=== PATIENT | female | born 1950 | race Two or more races ===

== ENCOUNTER 2021-10-12 09:20 | Inpatient (IN) | payer OTHER, MEDICAID ==
[~2021-10-12] VITALS: Ht 172.7 cm; Wt 110.5 kg
[2021-10-12] MEDS ORDERED: ONDANSETRON HCL 4 MG/2 ML VIAL ONE (10:20)
[2021-10-12] MEDS ORDERED: ONDANSETRON HCL 4 MG/2 ML VIAL IV ONE ×2 (10:30→16:45)
[2021-10-12] MEDS ORDERED: MORPHINE SULFATE 4 MG/ML SYR/VIAL IV ONE (10:30)
[2021-10-12 11:22] LABS: Basophils # (auto) 0.1 10 ^3/uL (0-0.2); Basophils % (auto) 0.4 % (0.0-2.0); Eosinophils # (auto) 0.1 10 ^3/uL (0-0.8); Eosinophils % (auto) 0.6 % (0.0-7.0); Hematocrit 44.7 % (36.0-46.0); Hemoglobin 14.6 g/dL (12.2-16.2); Lymphocytes # (auto) 2.1 10 ^3/uL (0.4-5.4); Lymphocytes % (auto) 12.5 % (10.0-50.0); Mean Corpuscular Hemoglobin 27.1 pg (28.0-32.0); Mean Corpuscular Hgb Conc. 32.6 g/dL (32.0-36.0); Monocytes % (auto) 6.3 % (0.0-12.0); Neutrophils # (auto) 13.3 10 ^3/uL (1.6-8.6); Neutrophils % (auto) 80.2 % (37.0-80.0); Red Blood Cells 5.39 10^6/uL (4.0-5.20); White Blood Cell 16.5 10^3/uL (4.4-10.8)
[2021-10-12 11:39] LABS: Albumin 3.7 g/dL (3.4-5.0); Calcium 9.2 mg/dL (8.5-10.1); Potassium 3.4 mmol/L (3.5-5.1)
[2021-10-12 11:42] LABS: BUN/Creatinine Ratio 15.8; Bilirubin, Total 0.4 mg/dL (0.2-1.0); Total Protein 7.4 g/dL (6.4-8.2)
[2021-10-12] MEDS ORDERED: HYDROmorphone HCL 2 MG/ML VL IV ONE (16:45)
[2021-10-12] MEDS ORDERED: ONDANSETRON HCL 4 MG/2 ML VIAL IV PRN (21:00)
[2021-10-12] MEDS ORDERED: TEMAZEPAM 15 MG CAP PO PRN (21:00)
[2021-10-12] MEDS ORDERED: HYDROcodone-ACET 5/325MG TAB PO PRN (21:00)
[2021-10-12] MEDS ORDERED: ACETAMINOPHEN 325 MG TAB PO PRN (21:00)
[2021-10-12] MEDS: MORPHINE SULFATE 4 MG/ML SYR/VIAL IV PRN (21:21)
[2021-10-12 22:35] LABS: Urine Bacteria NONE SEEN /hpf (None Seen); Urine Blood Negative /uL (Negative); Urine Mucus FEW (None Seen); Urine Specific Gravity 1.015 (1.001-1.035); Urine WBC <1 /hpf (0 - 5)
[2021-10-12 22:55] LABS: INR 0.99 (0.9-1.15); Partial Thromboplastin Time 30.5 sec (23.6-33.0)
[2021-10-13 05:31] LABS: Basophils # (auto) 0.1 10 ^3/uL (0-0.2); Eosinophils # (auto) 0 10 ^3/uL (0-0.8); Eosinophils % (auto) 0.2 % (0.0-7.0); Hematocrit 42.5 % (36.0-46.0); Lymphocytes # (auto) 1.8 10 ^3/uL (0.4-5.4); Monocytes # (auto) 1.2 10 ^3/uL (0-1.3); Neutrophils # (auto) 13.8 10 ^3/uL (1.6-8.6); White Blood Cell 16.8 10^3/uL (4.4-10.8)
[2021-10-13 05:37] LABS: Basophils % (auto) 0.4 % (0.0-2.0); Hemoglobin 13.8 g/dL (12.2-16.2); Lymphocytes % (auto) 10.9 % (10.0-50.0); Mean Corpuscular Hgb Conc. 32.5 g/dL (32.0-36.0); Monocytes % (auto) 6.8 % (0.0-12.0); Neutrophils % (auto) 81.7 % (37.0-80.0); Red Blood Cells 5.12 10^6/uL (4.0-5.20); Red Cell Distribution Width 15.2 % (11.8-14.3)
[2021-10-13 05:43] LABS: Calcium 9.1 mg/dL (8.5-10.1)
[2021-10-13 05:45] LABS: BUN/Creatinine Ratio 24.1
[2021-10-13] MEDS: MORPHINE SULFATE 4 MG/ML SYR/VIAL IV PRN (07:54)
[2021-10-13 08:00] VITALS: BP 120/55
[2021-10-13 09:00] VITALS: BP 120/55
[2021-10-13] MEDS ORDERED: PANTOPRAZOLE 40 MG TAB PO SCH (10:00)
[2021-10-13] MEDS ORDERED: MORPHINE SULFATE INJECTION 2 MG/ML SYRG IV STA (10:53)
[2021-10-13] MEDS ORDERED: SODIUM CHLORIDE 0.9% 1,000 ML IV SCH (11:15)
[2021-10-13 12:22] VITALS: BP 154/65
[2021-10-13] MEDS ORDERED: fentaNYL CITRATE 100 MCG/2 ML VL ONE (12:24)
[2021-10-13] MEDS ORDERED: MEPERIDINE HCL (50 MG/ML) 1 ML VIAL ONE (12:25)
[2021-10-13] MEDS ORDERED: MIDAZOLAM HCL 2MG/2ML 2ml VIAL (1mg/ml) ONE (12:30)
[2021-10-13] MEDS ORDERED: CLINDAMYCIN 900MG IV 50 ML IV ONE (12:38)
[2021-10-13] MEDS ORDERED: ONDANSETRON HCL 4 MG/2 ML VIAL IV PRN (12:45)
[2021-10-13] MEDS ORDERED: MORPHINE SULFATE 4 MG/ML SYR/VIAL IV PRN (12:45)
[2021-10-13] MEDS ORDERED: ePHEDrine SULFATE 50 MG/ML AMP IV PRN (12:45)
[2021-10-13] MEDS ORDERED: LABETALOL HCL 5 MG/ML 4ML SYRINGE IV PRN (12:45)
[2021-10-13] MEDS ORDERED: MIDAZOLAM HCL 2MG/2ML 2ml VIAL (1mg/ml) IV PRN (12:45)
[2021-10-13] MEDS ORDERED: HYDROmorphone HCL 2 MG/ML VL IV PRN (12:45)
[2021-10-13] MEDS ORDERED: DexAMETHasone SOD PHOS 10MG/1ML VIAL INJ ONE (13:05)
[2021-10-13] MEDS ORDERED: ETOMIDATE (2MG/ML) 20ML VIAL IV ONE (13:05)
[2021-10-13] MEDS ORDERED: BUPIVACAINE W/ EPINEPH 0.5% INJ 50ML MDV IJ ONE (13:27)
[2021-10-13] MEDS ORDERED: HYDROmorphone HCL 2 MG/ML VL ONE (14:41)
[2021-10-13] MEDS: LACTATED RINGER'S 1,000 ML IV SCH ×2 (15:12→23:08)
[2021-10-13 16:58] VITALS: BP 139/67
[2021-10-13 20:00] VITALS: BP 166/76
[2021-10-13] MEDS: HYDROcodone-ACET 10/325MG TAB PO PRN (23:07)
[2021-10-13] MEDS: CLINDAMYCIN 600MG IV 50 ML IV SCH (23:08)
[2021-10-13] MEDS: SODIUM CHLOR 0.9% PF (SALINE LOCK) 10ML VIAL/SYR IV SCH (23:09)
[2021-10-14] MEDS: CLINDAMYCIN 600MG IV 50 ML IV SCH (04:00)
[2021-10-14 05:00] VITALS: BP 117/75
[2021-10-14 07:29] LABS: Basophils # (auto) 0.1 10 ^3/uL (0-0.2); Basophils % (auto) 0.3 % (0.0-2.0); Eosinophils # (auto) 0 10 ^3/uL (0-0.8); Lymphocytes # (auto) 1.7 10 ^3/uL (0.4-5.4); Lymphocytes % (auto) 8.9 % (10.0-50.0); Red Cell Distribution Width 14.8 % (11.8-14.3)
[2021-10-14 07:32] LABS: Hematocrit 38.6 % (36.0-46.0); Hemoglobin 12.7 g/dL (12.2-16.2); Mean Corpuscular Hemoglobin 27.1 pg (28.0-32.0); Mean Corpuscular Hgb Conc. 32.8 g/dL (32.0-36.0); Mean Corpuscular Volume 82.5 fL (80.0-100.0); Monocytes # (auto) 1.6 10 ^3/uL (0-1.3); Monocytes % (auto) 8.6 % (0.0-12.0); Neutrophils # (auto) 15.5 10 ^3/uL (1.6-8.6); Neutrophils % (auto) 82.2 % (37.0-80.0); Red Blood Cells 4.68 10^6/uL (4.0-5.20); White Blood Cell 18.8 10^3/uL (4.4-10.8)
[2021-10-14 07:54] LABS: Potassium 4.5 mmol/L (3.5-5.1)
[2021-10-14 08:03] LABS: BUN/Creatinine Ratio 58.3
[2021-10-14] MEDS: SODIUM CHLOR 0.9% PF (SALINE LOCK) 10ML VIAL/SYR IV SCH ×3 (08:03→21:31)
[2021-10-14] MEDS: ENOXAPARIN SOD 40 MG/0.4 ML SYRINGE SC SCH (09:26)
[2021-10-14] MEDS: LACTATED RINGER'S 1,000 ML IV SCH ×2 (09:26→10:45)
[2021-10-14] MEDS: HYDROcodone-ACET 10/325MG TAB PO PRN ×4 (09:27→23:02)
[2021-10-14 09:36] VITALS: BP 153/72
[2021-10-14 12:51] VITALS: BP 142/64
[2021-10-14] MEDS ORDERED: BACLOFEN 10 MG TAB PO PRN (13:30)
[2021-10-14 22:00] VITALS: BP 157/75
[2021-10-15] MEDS: LACTATED RINGER'S 1,000 ML IV SCH ×2 (00:21→09:45)
[2021-10-15 05:00] VITALS: BP 154/72
[2021-10-15] MEDS: HYDROcodone-ACET 10/325MG TAB PO PRN ×3 (05:01→17:16)
[2021-10-15] MEDS: SODIUM CHLOR 0.9% PF (SALINE LOCK) 10ML VIAL/SYR IV SCH ×2 (06:14→17:00)
[2021-10-15 09:12] VITALS: BP 156/73
[2021-10-15] MEDS: ENOXAPARIN SOD 40 MG/0.4 ML SYRINGE SC SCH (09:44)
[2021-10-15] MEDS ORDERED: hydrALAZINE HCL 20 MG/ML VL IV PRN (10:45)
[2021-10-15 12:49] VITALS: BP 135/65
[2021-10-15 17:09] VITALS: BP 169/80
[2021-10-15 22:00] VITALS: BP 159/78
[2021-10-16] MEDS: SODIUM CHLOR 0.9% PF (SALINE LOCK) 10ML VIAL/SYR IV SCH ×4 (00:28→23:02)
[2021-10-16 05:31] LABS: Basophils # (auto) 0.1 10 ^3/uL (0-0.2); Basophils % (auto) 0.8 % (0.0-2.0); Eosinophils # (auto) 0.4 10 ^3/uL (0-0.8); Eosinophils % (auto) 2.3 % (0.0-7.0); Hematocrit 36.2 % (36.0-46.0); Hemoglobin 11.9 g/dL (12.2-16.2); Lymphocytes # (auto) 3.8 10 ^3/uL (0.4-5.4); Lymphocytes % (auto) 24.5 % (10.0-50.0); Mean Corpuscular Hemoglobin 27.3 pg (28.0-32.0); Mean Corpuscular Volume 82.6 fL (80.0-100.0); Monocytes # (auto) 1.3 10 ^3/uL (0-1.3); Monocytes % (auto) 8.3 % (0.0-12.0); Neutrophils # (auto) 10.1 10 ^3/uL (1.6-8.6); Neutrophils % (auto) 64.1 % (37.0-80.0); Red Blood Cells 4.38 10^6/uL (4.0-5.20); Red Cell Distribution Width 14.5 % (11.8-14.3); White Blood Cell 15.7 10^3/uL (4.4-10.8)
[2021-10-16 08:28] VITALS: BP 175/76
[2021-10-16] MEDS: ENOXAPARIN SOD 40 MG/0.4 ML SYRINGE SC SCH ×2 (09:50→09:59)
[2021-10-16 12:42] VITALS: BP 151/94
[2021-10-16 22:00] VITALS: BP 142/71
[2021-10-17 05:00] VITALS: BP 162/72
[2021-10-17] MEDS: SODIUM CHLOR 0.9% PF (SALINE LOCK) 10ML VIAL/SYR IV SCH ×2 (06:15→14:06)
[2021-10-17 09:00] VITALS: BP 162/82
[2021-10-17] MEDS: ENOXAPARIN SOD 40 MG/0.4 ML SYRINGE SC SCH (10:49)
[2021-10-17 13:00] VITALS: BP 143/71
[2021-10-17 17:00] VITALS: BP 163/76
[2021-10-17 20:00] VITALS: BP 117/71
[2021-10-18] MEDS: SODIUM CHLOR 0.9% PF (SALINE LOCK) 10ML VIAL/SYR IV SCH ×3 (03:26→14:20)
[2021-10-18 05:00] VITALS: BP 109/70
[2021-10-18 06:18] LABS: Basophils # (auto) 0.1 10 ^3/uL (0-0.2); Basophils % (auto) 0.8 % (0.0-2.0); Eosinophils # (auto) 0.5 10 ^3/uL (0-0.8); Eosinophils % (auto) 3.9 % (0.0-7.0); Hematocrit 35.6 % (36.0-46.0); Hemoglobin 11.6 g/dL (12.2-16.2); Lymphocytes # (auto) 3.1 10 ^3/uL (0.4-5.4); Lymphocytes % (auto) 22.5 % (10.0-50.0); Mean Corpuscular Hemoglobin 26.9 pg (28.0-32.0); Mean Corpuscular Hgb Conc. 32.6 g/dL (32.0-36.0); Mean Corpuscular Volume 82.7 fL (80.0-100.0); Monocytes # (auto) 1.2 10 ^3/uL (0-1.3); Monocytes % (auto) 8.8 % (0.0-12.0); Neutrophils # (auto) 8.7 10 ^3/uL (1.6-8.6); Red Cell Distribution Width 14.6 % (11.8-14.3); White Blood Cell 13.6 10^3/uL (4.4-10.8)
[2021-10-18 06:26] LABS: Potassium 3.8 mmol/L (3.5-5.1)
[2021-10-18 06:46] LABS: Albumin 2.9 g/dL (3.4-5.0); BUN/Creatinine Ratio 35.7; Bilirubin, Total 0.7 mg/dL (0.2-1.0); Calcium 8.7 mg/dL (8.5-10.1); Total Protein 6.3 g/dL (6.4-8.2)
[2021-10-18 08:00] VITALS: BP 130/69
[2021-10-18] MEDS: ENOXAPARIN SOD 40 MG/0.4 ML SYRINGE SC SCH (10:32)
[2021-10-18 12:32] VITALS: BP 151/83
[2021-10-18 13:46] VITALS: BP 130/60
== END 2021-10-18 15:00 | DRG 481 ==
LOC: ER 09:20 → EDBD 09:20 → OVERFLOW 20:54 → WEST WING 23:49
PROVIDERS: ADMIT Nurse Practitioner; ATTEND Internal Medicine
PROC: BQ101ZZ Fluoroscopy of Right Hip using Low Osmolar Contrast (ICD-10-PCS; 2021-10-13)
PROC: 0QS636Z Reposition Right Upper Femur with Intramedullary Internal Fixation Device, Percutaneous Approach (ICD-10-PCS; principal; 2021-10-13 12:43)
DX: S72.141A Displaced intertrochanteric fracture of right femur, initial encounter for closed fracture (principal); R65.10 Systemic inflammatory response syndrome (SIRS) of non-infectious origin without acute organ dysfunction; K44.9 Diaphragmatic hernia without obstruction or gangrene; I10 Essential (primary) hypertension; E66.9 Obesity, unspecified; K57.30 Diverticulosis of large intestine without perforation or abscess without bleeding; W06.XXXA Fall from bed, initial encounter; E66.01 Morbid (severe) obesity due to excess calories; Z20.822 Contact with and (suspected) exposure to COVID-19; M19.90 Unspecified osteoarthritis, unspecified site; K76.0 Fatty (change of) liver, not elsewhere classified; Z88.0 Allergy status to penicillin; Z68.36 Body mass index [BMI] 36.0-36.9, adult; Y93.89 Activity, other specified; Y92.89 Other specified places as the place of occurrence of the external cause; Y99.8 Other external cause status
CPT/HCPCS: 36415; 70450; 71045; 72192; 73502; 74176; 76000; 80048; 80053; 81001; 85025; 85610; 85730; 86850; 86900; 86901; 87426; 93005; 96374; 96375; 96376; 97110; 97116; 97163; 97530; 99291; C1713; G0378; J1100; J2250; J2405; J3490

== ENCOUNTER 2023-04-14 15:20 | Inpatient (IN) | payer OTHER, MEDICAID ==
[~2023-04-14] VITALS: Ht 172.7 cm; Wt 126.8 kg
[2023-04-14 16:27] VITALS: PULSE 79; RESP 14; O2SAT 98
[2023-04-14 16:41] LABS: Basophils # (auto) 0.1 10 ^3/uL (0-0.2); Eosinophils # (auto) 0.4 10 ^3/uL (0-0.8); Eosinophils % (auto) 2.9 % (0.0-7.0); Hematocrit 48.3 % (36.0-46.0); Hemoglobin 15.8 g/dL (12.2-16.2); Lymphocytes # (auto) 3.8 10 ^3/uL (0.4-5.4); Lymphocytes % (auto) 26.9 % (10.0-50.0); Mean Corpuscular Hemoglobin 27.8 pg (28.0-32.0); Mean Corpuscular Hgb Conc. 32.8 g/dL (32.0-36.0); Mean Corpuscular Volume 84.7 fL (80.0-100.0); Monocytes # (auto) 1.1 10 ^3/uL (0-1.3); Monocytes % (auto) 7.6 % (0.0-12.0); Neutrophils # (auto) 8.8 10 ^3/uL (1.6-8.6); Neutrophils % (auto) 61.6 % (37.0-80.0); Nucleated Red Blood Cells % 0.1 %; Red Cell Distribution Width 15.1 % (11.8-14.3); White Blood Cell 14.2 10^3/uL (4.4-10.8)
[2023-04-14] MEDS ORDERED: IPRATROPIUM BROM 0.5 MG/2.5ML INH SOL NEB ONE (16:45)
[2023-04-14] MEDS ORDERED: ALBUTEROL SULF 2.5 MG/0.5ML(0.5%) NEB SOLN NEB ONE (16:45)
[2023-04-14] MEDS ORDERED: predniSONE 20 MG TAB PO ONE (16:45)
[2023-04-14 17:09] LABS: Albumin 4.2 g/dL (3.4-5.0); Calcium 9.5 mg/dL (8.5-10.1)
[2023-04-14 17:12] LABS: BUN/Creatinine Ratio 20.9 (10.0-20.0); Bilirubin, Total 0.5 mg/dL (0.2-1.0); Total Protein 7.8 g/dL (6.4-8.2)
[2023-04-14] MEDS ORDERED: NITROGLYCERIN 0.4 MG SL TAB SL PRN (18:30)
[2023-04-14] MEDS ORDERED: IPRATROPIUM BROM 0.5 MG/2.5ML INH SOL NEB PRN (18:30)
[2023-04-14] MEDS ORDERED: ONDANSETRON HCL 4 MG/2 ML VIAL IV PRN (18:30)
[2023-04-14] MEDS ORDERED: ALBUTEROL SULF 2.5 MG/0.5ML(0.5%) NEB SOLN NEB PRN (18:30)
[2023-04-14] MEDS ORDERED: MORPHINE SULFATE INJ 2 MG/ml SYRG IV PRN (18:30)
[2023-04-14] MEDS ORDERED: ACETAMINOPHEN 325 MG TAB PO PRN (18:30)
[2023-04-14 18:39] VITALS: BP 156/82; PULSE 82; RESP 18; TEMP 98.6; O2SAT 95
[2023-04-14] MEDS ORDERED: hydrALAZINE HCL 20 MG/ML VL IV ONE (18:45)
[2023-04-14 21:23] VITALS: PULSE 93; RESP 19; O2SAT 94
[2023-04-15] VITALS (15 sets, daily range): BP systolic 127–197; BP diastolic 81–104; PULSE 63–98; RESP 14–20; TEMP 97.4–98.4; O2SAT 91–99
[2023-04-15 05:22] LABS: Basophils # (auto) 0.1 10 ^3/uL (0-0.2); Basophils % (auto) 0.3 % (0.0-2.0); Eosinophils # (auto) 0 10 ^3/uL (0-0.8); Eosinophils % (auto) 0.2 % (0.0-7.0); Hematocrit 44.3 % (36.0-46.0); Hemoglobin 14.7 g/dL (12.2-16.2); Lymphocytes # (auto) 2.2 10 ^3/uL (0.4-5.4); Lymphocytes % (auto) 14.2 % (10.0-50.0); Mean Corpuscular Hgb Conc. 33.2 g/dL (32.0-36.0); Mean Corpuscular Volume 84.4 fL (80.0-100.0); Monocytes # (auto) 1.2 10 ^3/uL (0-1.3); Monocytes % (auto) 7.7 % (0.0-12.0); Neutrophils # (auto) 12.2 10 ^3/uL (1.6-8.6); Neutrophils % (auto) 77.6 % (37.0-80.0); Red Blood Cells 5.24 10^6/uL (4.0-5.20); Red Cell Distribution Width 14.8 % (11.8-14.3); White Blood Cell 15.7 10^3/uL (4.4-10.8)
[2023-04-15 05:37] LABS: Calcium 9.3 mg/dL (8.5-10.1); Potassium 3.5 mmol/L (3.5-5.1)
[2023-04-15 05:41] LABS: BUN/Creatinine Ratio 23.9 (10.0-20.0)
[2023-04-15] MEDS ORDERED: hydrALAZINE HCL 20 MG/ML VL IV SCH (06:00)
[2023-04-15] MEDS ORDERED: hydrALAZINE HCL 20 MG/ML VL IV PRN (06:15)
[2023-04-15] MEDS: ALBUTEROL SULF 2.5 MG/0.5ML(0.5%) NEB SOLN NEB SCH ×3 (06:22→19:03)
[2023-04-15] MEDS: IPRATROPIUM BROM 0.5 MG/2.5ML INH SOL NEB SCH ×3 (06:22→19:03)
[2023-04-15 08:00] LABS: Urine Bacteria NONE SEEN /hpf (None Seen); Urine Blood Negative /uL (Negative); Urine Mucus FEW (None Seen); Urine Specific Gravity 1.027 (1.001-1.035); Urine WBC 29 /hpf (0 - 5)
[2023-04-15] MEDS ORDERED: AZITHROMYCIN 500MG/ 250ML 250 ML IV SCH (10:00)
[2023-04-15] MEDS: methylPREDNISolone SOD SUCC 40 MG/ML VL IV SCH (10:00)
[2023-04-15] MEDS: ENOXAPARIN SOD 40 MG/0.4 ML SYRINGE SC SCH (11:04)
[2023-04-15] MEDS: LISINOPRIL 10 MG TAB PO SCH (11:04)
[2023-04-15] MEDS ORDERED: levoFLOXacin 500MG 100 ML IV ONE (12:45)
[2023-04-15] MEDS ORDERED: METOPROLOL TARTRATE 50 MG TAB PO ONE (12:45)
[2023-04-15] MEDS ORDERED: CHOL20007 PO (16:46)
[2023-04-15] MEDS ORDERED: VITA1POW XX (16:49)
[2023-04-15] MEDS ORDERED: VITA200C27 PO (16:51)
[2023-04-15] MEDS ORDERED: FOLITAB22 PO (16:52)
[2023-04-15] MEDS ORDERED: B-COTAB59 OR (16:54)
[2023-04-15] MEDS ORDERED: ASCO500T11 PO (16:55)
[2023-04-15] MEDS ORDERED: CALC1TAB92 PO (16:56)
[2023-04-15] MEDS ORDERED: GLUC750C4 PO (16:57)
[2023-04-15] MEDS ORDERED: ZINC10LO4 MT (17:00)
[2023-04-15] MEDS ORDERED: MAGN400T40 PO (17:06)
[2023-04-15] MEDS: METOPROLOL TARTRATE 50 MG TAB PO SCH (21:44)
[2023-04-16] VITALS (16 sets, daily range): BP systolic 121–153; BP diastolic 67–79; PULSE 52–91; RESP 14–20; TEMP 97.6–98.6; O2SAT 90–100
[2023-04-16] MEDS: IPRATROPIUM BROM 0.5 MG/2.5ML INH SOL NEB SCH ×4 (00:16→18:48)
[2023-04-16] MEDS: ALBUTEROL SULF 2.5 MG/0.5ML(0.5%) NEB SOLN NEB SCH ×4 (00:16→18:48)
[2023-04-16] MEDS: methylPREDNISolone SOD SUCC 40 MG/ML VL IV SCH (08:34)
[2023-04-16] MEDS: ENOXAPARIN SOD 40 MG/0.4 ML SYRINGE SC SCH (08:35)
[2023-04-16] MEDS: levoFLOXacin 500MG 100 ML IV SCH (08:36)
[2023-04-16] MEDS: METOPROLOL TARTRATE 50 MG TAB PO SCH ×2 (08:36→21:28)
[2023-04-16] MEDS: LISINOPRIL 10 MG TAB PO SCH (08:36)
[2023-04-17] VITALS (10 sets, daily range): BP systolic 137–157; BP diastolic 53–78; PULSE 64–78; RESP 16–20; TEMP 98.4–98.5; O2SAT 91–100
[2023-04-17] MEDS: IPRATROPIUM BROM 0.5 MG/2.5ML INH SOL NEB SCH ×3 (01:38→12:33)
[2023-04-17] MEDS: ALBUTEROL SULF 2.5 MG/0.5ML(0.5%) NEB SOLN NEB SCH ×3 (01:38→12:33)
[2023-04-17] MEDS: methylPREDNISolone SOD SUCC 40 MG/ML VL IV SCH (09:00)
[2023-04-17] MEDS ORDERED: LEVO500T91 PO (09:21)
[2023-04-17] MEDS: METOPROLOL TARTRATE 50 MG TAB PO SCH (09:24)
[2023-04-17] MEDS: levoFLOXacin 500MG 100 ML IV SCH (09:24)
[2023-04-17] MEDS: LISINOPRIL 10 MG TAB PO SCH (09:25)
[2023-04-17] MEDS: ENOXAPARIN SOD 40 MG/0.4 ML SYRINGE SC SCH (09:25)
[2023-04-17] MEDS ORDERED: METO-158 PO (09:26)
== END 2023-04-17 12:32 | disposition home or self-care (01) | DRG 871 ==
LOC: ER 15:20 → TELE 18:28 → TELE-CENTR 04-15 11:48
PROVIDERS: ADMIT Family Medicine; ATTEND Family Medicine
DX: A41.9 Sepsis, unspecified organism (principal); J96.21 Acute and chronic respiratory failure with hypoxia; J44.1 Chronic obstructive pulmonary disease with (acute) exacerbation; N39.0 Urinary tract infection, site not specified; M19.90 Unspecified osteoarthritis, unspecified site; I10 Essential (primary) hypertension; Z88.0 Allergy status to penicillin; Z87.891 Personal history of nicotine dependence
CPT/HCPCS: 36415; 71045; 80048; 80053; 81001; 83880; 84484; 85025; 87086; 93005; 94640; G0378; J1956

== ENCOUNTER 2025-04-14 23:41 | Inpatient (IN) | payer OTHER, MEDICAID ==
[~2025-04-14] VITALS: Ht 172.7 cm; Wt 116.4 kg
[~2025-04-14 23:41] MED LIST: ASCO500T11 PO; ATOR10TA52 PO; B-COTAB59 OR; CALC1TAB92 PO; CHOL20007 PO; FOLITAB22 PO; GLUC750C4 PO; LEVO500T91 PO; MAGN400T40 PO; METO-158 PO; VITA1POW XX; VITA200C27 PO; ZINC10LO4 MT
[2025-04-15] VITALS (7 sets, daily range): BP systolic 131–166; BP diastolic 55–82; PULSE 58–79; RESP 17–20; TEMP 97.7–98; O2SAT 92–96
--- NOTE | 2025-04-15 00:18 | ED.PDOC ---
History of Present Illness HPI Comments 74 y/o obese F is BIBA from private residence for c/c nonradiating, sternal chest pressure, with associated shortness of breath, dizziness, nausea, and diaphoresis. Patient endorses on sudden, unprovoked, and atraumatic onset of symptoms, while at rest, seated and knitting an hour prior to arrival, last nigh t. Denies any palpitations, congestion, cough, fever, chills, or further associated symptoms. Patient complaint with mediations, with last oral intake being this morning. Per EMS report, vitals were noted to have been stable and within normal limits, with exception of patient being hypertensive and a SpO2 of 94%RA, which worsened to 89% upon arrival to ED prior to oxygen administration. Patient's skin was noted to have been clammy and cool to the touch. Chief Complaint: Dizziness Time Seen by MD: 00:00 Primary Care Provider: Amanda (Dr Chavez) Reviewed Notes: Nurses Notes, Analytics Specialist Notes, Medications, Allergies Allergies: Coded Allergies: Penicillins (Verified Allergy, Unknown, 10/13/21) Home Meds Active Scripts Metoprolol Tartrate (Metoprolol Tartrate) 50 Mg Tab, 50 MG PO BID, #60 TAB Prov:CRISTIAN DAVID MD 04/17/23 Levofloxacin Hemihydrate (LEVAQUIN 500 MG) 500 Mg Tab, 1 TAB PO DAILY, #7 TAB Prov:CRISTIAN DAVID MD 04/17/23 Reported Medications Magnesium Oxide (MAGNESIUM OXIDE) 400 Mg Tab, 1 TAB PO DAILY, #30 TAB 5 Refills 04/15/23 Zinc Gluconate (Zinc) 10 Mg Amado, 10 MG MT for Immune support, AMADO 04/15/23 Glucosamine Sulfate (Glucosamine) 750 Mg Cap, 750 MG PO for Improval Joint movement , CAP 04/15/23 Calcium Carbonate (Calcium) 600 Mg Tab, 600 MG PO for Supplement, TAB 04/15/23 Ascorbic Acid (VITAMIN C TABLET) 500 Mg Tb, 1 TAB PO DAILY for Supplement, #30 TAB 04/15/23 B-Complex W/ Folic Acid (B Complex) Tab, 1 OR for Vitamin Supplement, TAB 04/15/23 Folic Gugr-Quetqmnbvz-Uppmwhbj (Folbic) Tab, 1 TAB PO DAILY for Supplement, #30 TAB 5 Refills 04/15/23 Tocopheryl Acetate, Dl-Alpha ( (Vitamin E) 90 Mg Cap, 90 MG PO for Skin improvement, CAP 04/15/23 Vitamin A (Synthetic) (Vitamin A) 1 Pow Pow, 1 POW XX DAILY for Supplement, POW 04/15/23 Cholecalciferol (VITAMIN D3) 2,000 Unit Tab, 1 TAB PO DAILY for Deficiency for 1 Day, #1 TAB 5 Refills 04/15/23 Information Source: Patient, Emergency Med Personnel Mode of Arrival: EMS Severity: Moderate Timing: Hours Duration: Since onset Prehospital treatment: 12 Lead EKG, Accucheck, Utilization Management Nurse Past Medical History PAST MEDICAL HISTORY: Arthritis, COPD, HTN, UTI'S Past Medical History (Other): sepsis chronic hypoxic respiratory failur Surgical History: Denies all surgeries PAINTER HELPER History: No Pertinent PAINTER HELPER History Family History Family History: Reviewed,noncontributory to illness, No family hx of Cancer, No family hx of DM, No family hx of Heart stan, No family hx of HTN, No family hx ofKidney stan, No family hx of Liver stan, No family hx of Lung stan, No family hx of Stroke Social History Smoker: Non-Smoker, Quit Greater Than 1 Year Alcohol: Denies ETOH Use Drugs: Denies Drug Use Lives In: Home Constitutional: reports: malaise Cardiovascular: reports: chest pain Neurological: reports: dizziness All Other Systems: Reviewed and Negative (Comprehensive systems review obtained and negative except for what is stated in the HPI.) Physical Exam General Appearance: Moderate Distress, Obese, Other (lederly) HEENT: Normal ENT Inspection, Pharynx Normal, TMs Normal Neck: Full Range of Motion, Non-Tender, Normal, Normal Inspection Respiratory: Chest Non-Tender, Lungs Clear, No Accessory Muscle Use, No Respiratory Distress, Normal Breath Sounds Cardiovascular: No Edema, No JVD, No Murmur, No Gallop, Normal Peripheral Pulses, Regular Rate/Rhythm, Systolic Murmur Breast Exam: Deferred Gastrointestinal: No Organomegaly, Non Tender, No Pulsatile Mass, Normal Bowel Sounds, Soft Genitalia: Deferred Pelvic: Deferred Rectal: Deferred Extremities: No calf tenderness, Normal capillary refill, Normal inspection, Normal range of motion, Non-tender, No pedal edema Musculoskeletal : Apperance: Normal Neurologic: Alert, community service coordinator II-XII nml as Tested, No Motor Deficits, Normal Affect, Normal Mood, No Sensory Deficits Cerebellar Function: Normal Reflexes: Normal Skin: Dry, Normal Color, Warm Lymphatic: No Adenopathy Was a procedure done? Was a procedure done?: No EKG EKG : Pulse Rate (adult): 69 [place]: Normal Cardiac Rhythm: NSR Block: None Hypertrophy: None ST: Normal Differential Dx Considerations may include: MO, PE, ACS, URI, PNA, anxiety, sepsis, vertigo, acute respiratory failure, angina, viral syndrome, electrolyte imbalance, dehydration, among others X-Ray, Labs, Meds, VS Vital Signs Date Time Temp Pulse Resp B/P (MAP) Pulse Ox O2 Delivery O2 Flow Rate FiO2 04/15/25 02:15 208/68 04/15/25 02:14 208/97 04/15/25 00:18 69 04/14/25 23:48 97.2 70 20 183/95 (124) 89 97.2 04/14/25 23:46 69 Lab Test 04/15/25 01:42 Range/Units White Blood Count 15.1 H 4.4-10.8 10^3/uL Red Blood Count 5.23 H 4.0-5.20 10^6/uL Hemoglobin 14.9 12.2-16.2 g/dL Hematocrit 44.0 36.0-46.0 % Mean Corpuscular Volume 84.2 80.0-100.0 fL Mean Corpuscular Hemoglobin 28.5 28.0-32.0 pg Mean Corpuscular Hemoglobin Concent 33.9 32.0-36.0 g/dL Red Cell Distribution Width 15.1 H 11.8-14.3 % Platelet Count 231 140-450 10^3/uL Mean Platelet Volume 8.5 6.9-10.8 fL Neutrophils (%) (Auto) 82.7 H 37.0-80.0 % Lymphocytes (%) (Auto) 9.6 L 10.0-50.0 % Monocytes (%) (Auto) 6.8 0.0-12.0 % Eosinophils (%) (Auto) 0.2 0.0-7.0 % Basophils (%) (Auto) 0.7 0.0-2.0 % Neutrophils # (Auto) 12.5 H 1.6-8.6 10 ^3/uL Lymphocytes # (Auto) 1.4 0.4-5.4 10 ^3/uL Monocytes # (Auto) 1.0 0-1.3 10 ^3/uL Eosinophils # (Auto) 0 0-0.8 10 ^3/uL Basophils # (Auto) 0.1 0-0.2 10 ^3/uL Nucleated Red Blood Cells 0.0 % Sodium Level 142 136-145 mmol/L Potassium Level 4.0 3.5-5.1 mmol/L Chloride Level 104 98-107 mmol/L Carbon Dioxide Level 27 20-31 mmol/L Anion Gap 11 5-15 Blood Urea Nitrogen 15 9-23 mg/dL Creatinine 0.65 0.550-1.02 mg/dL Glomerular Filtration Rate Calc 93 >90 mL/min BUN/Creatinine Ratio 23.1 H 10.0-20.0 Serum Glucose 150 H 74-106 mg/dL Calcium Level 9.2 8.7-10.4 mg/dL Magnesium Level 2.0 1.6-2.6 mg/dL Total Bilirubin 0.4 0.2-1.0 mg/dL Aspartate Amino Transferase (AST) 11 L 13-40 U/L Alanine Aminotransferase (ALT) 14 7-40 U/L Alkaline Phosphatase 94 46-116 U/L Troponin I High Sensitivity 135 *H </=34 ng/L Total Protein 6.4 5.7-8.2 g/dL Albumin 4.6 3.2-4.8 g/dL [place] [id number] Ph: [phone] DIAGNOSTIC IMAGING Diagnostic Imaging Report : [id number] Signed PATIENT: NUVIA LOU ACCT: [id number] UNIT: [id number] : 1950 LOC: ER ROOM / BED: / AGE / SEX: 74 / F ADM STATUS: REG ER SERVICE [id number] ORDERING PHYSICIAN: CELESTINA GALINDO MD PROCEDURE(s): HWOCT - HEAD WITHOUT CONTRAST REASON: vertigo ORDER NUMBER(s): [id number], ACCESSION NUMBER(s): [id number] EXAM: CT HEAD WITHOUT CONTRAST INDICATION: vertigo TECHNIQUE: CT of the head without intravenous contrast. Radiation Dose : 1. Head: CT Dose: CTDI volume is 61 mGy. Dose-length product is 1224 mGy*cm The dose indicators for CT are the volume Computed Tomography (CT) Dose Index (CTDIvol) and the Dose Length Product (DLP), and are measured in units of mGy and mGy-cm, respectively. These indicators are not patient dose, but values generated from the CT scanner acquisition factors. The report includes radiation exposure data for exposures received during this examination. COMPARISON: HEAD WITHOUT CONTRAST on DOS: 10/12/21 FINDINGS: There is no evidence of acute intracranial hemorrhage, extra-axial collection, mass effect, midline shift, herniation or hydrocephalus. The ventricles, sulci and cisterns are age appropriate. The trinh-white differentiation is intact. Patchy periventricular and subcortical white matter hypoattenuation is nonspe cific but may be related to small vessel ischemic disease. The visualized paranasal sinuses and mastoid air cells are clear. The surrounding soft tissues and osseous structures are unremarkable. IMPRESSION: 1. No acute intracranial abnormality. Radiation optimization: All CT scans at this facility use at least one of these dose optimization techniques: automated exposure control mA and/or kV adjustment per patient size (includes targeted exams where dose is matched to clinical indication) or iterative reconstruction. ATED BY: DC MARTINEZ MD DICTATED DATE/TIME: 04/15/2550 SIGNED BY: DC MARTINEZ MD SIGNED DATE/TIME: 04/15/2550 CC: [place] [id number] Ph: [phone] DIAGNOSTIC IMAGING Diagnostic Imaging Report : [id number] Signed PATIENT: NUVIA LOU ACCT: [id number] UNIT: [id number] : 1950 LOC: ER ROOM / BED: / AGE / SEX: 74 / F ADM STATUS: REG ER SERVICE ORDERING PHYSICIAN: CELESTINA GALINDO MD PROCEDURE(s): CXRP - CHEST PORTABLE REASON: SOB ORDER NUMBER(s): [id number], ACCESSION NUMBER(s): [id number] CHEST RADIOGRAPH Indication: SOB Technique: Single frontal view of the chest was obtained COMPARISON: XY CHEST PORTABLE on DOS: 04/14/23, CHEST PORTABLE on DOS: 1/25/22 FINDINGS: Lines and Tubes: None Lungs: Mild interstitial pulmonary edema. Pleura: No effusion. No pneumothorax. Cardiomediastinal contours: Unremarkable Bones: Unremarkable IMPRESSION: 1. Mild interstitial pulmonary edema. ATED BY: DC MARTINEZ MD DICTATED DATE/TIME: 04/15/2556 SIGNED BY: DC MARTINEZ MD SIGNED DATE/TIME: 04/15/2556 CC: Time of 1ST Reevaluation: 00:30 Reevaluation 1ST: Unchanged Patient Education/Counseling: Diagnosis, Treatment, Need For Follow Up Family Education/Counseling: No Family Present SEPSIS Sepsis Screen Physician Orders Electrocardigram (04/14/25 23:50) Troponin-I Hs (04/15/25 03:00) Urinalysis (04/15/25 00:14) Chest Portable (04/15/25 00:14) Troponin-I Hs (04/15/25 03:14) Head Without Contrast (04/15/25 00:14) Aspirin Tablet (04/15/25 02:30) Vital Signs Date Time Temp Pulse Resp B/P (MAP) Pulse Ox O2 Delivery O2 Flow Rate FiO2 04/15/25 02:15 208/68 04/15/25 02:14 208/97 04/15/25 00:18 69 04/14/25 23:48 97.2 70 20 183/95 (124) 89 97.2 04/14/25 23:46 69 Laboratory Tests Test 04/15/25 01:42 White Blood Count 15.1 10^3/uL (4.4-10.8) H Medications Medications Dose Ordered Sig/Aimee Route Start Time Stop Time Status Last Admin Dose Admin Hydralazine HCl 20 mg STK-MED ONCE .ROUTE 04/15/25 02:07 04/15/25 02:05 DC 04/15/25 02:14 Departure 1 Departure Time of Disposition: 02:31 Impression: Primary Impression: Acute coronary syndrome Additional Impressions: Vertigo Hypertensive urgency Disposition: 09 ADMITTED INPATIENT Admit to: Tele Condition: Guarded Discharged With: Self Comments Chest Pain, Dizziness, and Hypertensive Urgency Chief Complaint: Chest pressure, dizziness, malaise, and nausea History of Present Illness: Patient is a 74-year-old female who was brought to the Emergency Department via ambulance from home with complaints of substernal chest pressure, dizziness, malaise, and nausea for the past four hours. Symptoms began unprovoked. The chest pressure is described as substernal in location. Patient reports associated symptoms of dizziness, general malaise, and nausea. No reported alleviating or exacerbating factors. No prior similar episodes reported. Patient was noted to have significantly elevated blood pressure on arrival, initially 183/95 mmHg, which subsequently increased to 208/97 mmHg despite intervention. Review of Systems: Constitutional: Positive for malaise. Cardiovascular: Positive for chest pressure, substernal in location. Neurological: Positive for dizziness. Gastrointestinal: Positive for nausea. All other systems: Deferred or negative. Medications: Current home medications: Unknown Medications administered in ED: - Aspirin - Furosemide (Lasix) - Hydralazine Allergies: No known allergies documented Past Medical History: Suspected hypertension given current presentation Possible history of congestive heart failure given CXR findings Complete past medical history not fully documented in instructor watch assembly Vital Signs: Blood Pressure: Initially 183/95 mmHg, increased to 208/97 mmHg Other vital signs not documented in instructor watch assembly Physical Exam: General: Patient appears uncomfortable and elderly. Detailed physical examination findings not documented in instructor watch assembly. Lab Results: CBC: WBC elevated at 15,000/?L Chemistry: Glucose 150 mg/dL, otherwise unremarkable Cardiac enzymes: Troponin elevated at 135 ng/L Imaging and Other Relevant Results: CT Head: No acute intracranial pathology Chest X-ray: Findings consistent with mild congestive heart failure Medical Decision Making: Summary Statement: 74-year-old female presenting with acute onset substernal chest pressure, dizziness, and elevated troponin in the setting of hypertensive urgency and evidence of mild CHF on imaging. Problem List: 1. Acute coronary syndrome with elevated troponin, 2. Hypertensive urgency, 3. Vertigo/dizziness, 4. Mild congestive heart failure Differential Diagnosis: For chest pain and elevated troponin: NSTEMI, unstable angina, myocarditis, stress cardiomyopathy, pulmonary embolism. For dizziness: Vertigo, cerebrovascular event, medication effect, dehydration, anemia, arrhythmia. ED Course: Patient presented with chest pressure and dizziness. Initial workup revealed elevated troponin, leukocytosis, and mild hyperglycemia. CT head was negative for acute pathology. CXR showed mild CHF. Patient was treated with aspirin for ACS, Lasix for CHF, and hydralazine for hypertensive urgency. Desp ite treatment, blood pressure increased from 183/95 to 208/97 mmHg, indicating need for more aggressive blood pressure management. Assessment and Plan: 1. Acute Coronary Syndrome with elevated troponin: - Initiated ACS protocol with aspirin - Admit to Cardiology service for further management - Recommend serial troponins, ECG monitoring - Consider cardiac catheterization based on further evaluation 2. Hypertensive Urgency: - Administered hydralazine in ED with inadequate response - Recommend IV labetalol or nicardipine drip for better blood pressure control - Monitor for end-organ damage - Evaluate for underlying causes of hypertension 3. Vertigo/Dizziness: - CT head negative for acute pathology - May be related to hypertension or cardiac issues - Monitor symptoms with blood pressure control - Consider neurology consultation if symptoms persist 4. Congestive Heart Failure: - Mild findings on chest X-ray - Initiated treatment with Lasix - Monitor fluid status and respiratory status - Consider echocardiogram to assess cardiac function Disposition: Admit to inpatient cardiology service for management of acute coronary syndrome, hypertensive urgency, and associated conditions. Additional Notes: Patient presented via ambulance with chest pressure, dizziness, and elevated troponin. Billing Information: ICD-10: I21.9 - Acute myocardial infarction, unspecified ICD-10: I16.0 - Hypertensive urgency ICD-10: H81.10 - Benign paroxysmal vertigo, unspecified ear ICD-10: I50.9 - Heart failure, unspecified Critical Care Note Critical Care Time?: Yes (35 min-critical care time only) Critical care comment: Total critical care time: Approximately 36 minutes Due to a high probability of clinically significant, life threatening deterioration, the patient required my highest level of preparedness to intervene emergently and I personally spent this critical care time directly and personally managing the patient. This critical care time included obtaining a history; examining the patient; pulse oximetry; ordering and review of studies; arranging urgent treatment with development of a management plan; evaluation of patient's response to treatment; frequent reassessment; and, discussions with other providers. This critical care time was performed to assess and manage the high probability of imminent, life-threatening deterioration that could result in multi-organ failure. It was exclusive of separately billable procedures and treating other patients. Stability Stability form required: No Heart Score Heart Score: Heart Score Response (Comments) Value History Moderate Suspicious 1 EKG Normal 0 Age >65 2 Risk Factors >3 or Hx ASHD 2 Troponin 1-2 x's Normal limit 1 Total 6 I personally scribed for CELESTINA GALINDO MD ([email or web address]) on 04/15/25 at 00:18. Cassidy ctronically submitted by Cheko Hannon ([email or web address]). I personally scribed for CELESTINA GALINDO MD ([email or web address]) on 04/15/25 at 01:36. Electronically submitted by Cheko Hannon ([email or web address]). CELESTINA GALINDO MD Apr 15, 2025 00:18
--- NOTE | 2025-04-15 00:53 | DVH ---
EXAM: CT HEAD WITHOUT CONTRAST INDICATION: vertigo TECHNIQUE: CT of the head without intravenous contrast. Radiation Dose : 1. Head: CT Dose: CTDI volume is 61 mGy. Dose-length product is 1224 mGy*cm The dose indicators for CT are the volume Computed Tomography (CT) Dose Index (CTDIvol) and the Dose Length Product (DLP), and are measured in units of mGy and mGy-cm, respectively. These indicators are not patient dose, but values generated from the CT scanner acquisition factors. The report includes radiation exposure data for exposures received during this examination. COMPARISON: HEAD WITHOUT CONTRAST on DOS: 10/12/21 FINDINGS: There is no evidence of acute intracranial hemorrhage, extra-axial collection, mass effect, midline s hift, herniation or hydrocephalus. The ventricles, sulci and cisterns are age appropriate. The trinh-white differentiation is intact. Patchy periventricular and subcortical white matter hypoattenuation is nonspecific but may be related to small vessel ischemic disease. The visualized paranasal sinuses and mastoid air cells are clear. The surrounding soft tissues and osseous structures are unremarkable. IMPRESSION: 1. No acute intracranial abnormality. Radiation optimization: All CT scans at this facility use at least one of these dose optimization siva hniques: automated exposure control mA and/or kV adjustment per patient size (includes targeted exam s where dose is matched to clinical indication) or iterative reconstruction.
--- NOTE | 2025-04-15 00:59 | DVH ---
CHEST RADIOGRAPH Indication: SOB Technique: Single frontal view of the chest was obtained COMPARISON: XY CHEST PORTABLE on DOS: 04/14/23, CHEST PORTABLE on DOS: 10/13/21 FINDINGS: Lines and Tubes: None Lungs: Mild interstitial pulmonary edema. Pleura: No effusion. No pneumothorax. Cardiomediastinal contours: Unremarkable Bones: Unremarkable IMPRESSION: 1. Mild interstitial pulmonary edema.
[2025-04-15 01:52] LABS: Hematocrit 44.0 % (36.0-46.0); Hemoglobin 14.9 g/dL (12.2-16.2); Mean Corpuscular Hemoglobin 28.5 pg (28.0-32.0); Mean Corpuscular Volume 84.2 fL (80.0-100.0); Nucleated Red Blood Cells % 0.0 %
[2025-04-15] MEDS: hydrALAZINE HCL 20 MG/ML VL ONE (02:14)
[2025-04-15] MEDS: hydrALAZINE HCL 20 MG/ML VL IV ONE (02:15)
[2025-04-15 02:19] LABS: Alanine Aminotransferase 14 U/L (7-40); Albumin 4.6 g/dL (3.2-4.8); Alkaline Phosphatase 94 U/L (46-116); Anion Gap 11 (5-15); BUN/Creatinine Ratio 23.1 (10.0-20.0); Blood Urea Nitrogen 15 mg/dL (9-23); Calcium 9.2 mg/dL (8.7-10.4); Carbon Dioxide 27 mmol/L (20-31); Chloride 104 mmol/L (98-107); Magnesium 2.0 mg/dL (1.6-2.6); Potassium 4.0 mmol/L (3.5-5.1); Sodium 142 mmol/L (136-145); Total Protein 6.4 g/dL (5.7-8.2)
[2025-04-15 02:20] LABS: Bilirubin, Total 0.4 mg/dL (0.2-1.0)
[2025-04-15 02:21] LABS: Glucose 150 mg/dL (74-106)
[2025-04-15] MEDS: FUROSEMIDE 20 MG/2 ML VIAL IV ONE (02:45)
[2025-04-15] MEDS ORDERED: NITROGLYCERIN 0.4 MG SL TAB SL PRN (03:15)
[2025-04-15] MEDS ORDERED: MORPHINE SULFATE INJ 2 MG/ml SYRG IV PRN (03:15)
--- NOTE | 2025-04-15 04:03 | DVHHP2 ---
History of Present Illness Reason for Visit: Chest pain History of Present Illness Sensory year old female presents for evaluation of chest pain. The patient reports developing chest pressure that was nonradiating yesterday afternoon while knitting. She reported having shortness for breath with nausea and emesis. No cough or fever. No other acute complaints reported. Past Medical History Hypertension, COPD, arthritis Past Surgical History Denies Family History Noncontributory Smoke: No ALCOHOL: none Drugs: None Lives: with Family Review of Systems Review of Systems Review of systems are currently negative otherwise addressed in HPI. Allergies: Coded Allergies: Penicillins (Verified Allergy, Unknown, 10/13/21) Medications Current Medications Medications Dose Ordered Sig/Aimee Route Start Time Stop Time Status Last Admin Dose Admin Hydralazine HCl 10 mg Q6HP PRN IV 04/15/25 03:15 Metoprolol Tartrate 50 mg BID PO 04/15/25 10:00 Atorvastatin Calcium 10 mg HS PO 04/15/25 22:00 Aspirin 162 mg DAILY PO 04/15/25 10:00 Ondansetron HCl 4 mg Q4HP PRN IV 04/15/25 03:15 Enoxaparin Sodium 40 mg DAILY SC 04/15/25 10:00 Acetaminophen 650 mg Q6HP PRN PO 04/15/25 03:15 Nitroglycerin 0.4 mg Q5MINP PRN SL 04/15/25 03:15 Morphine Sulfate 2 mg Q30M PRN IV 04/15/25 03:15 Exam Vital Signs Vital Signs Date Time Temp Pulse Resp B/P (MAP) Pulse Ox O2 Delivery O2 Flow Rate FiO2 04/15/25 02:45 152/56 04/15/25 00:18 69 04/14/25 23:48 97.2 20 89 97.2 Exam Gen: 74-year-old female in mild distress, morbidly obese Skin: Warm, dry, normal color and texture, no rash. HEENT: Normocephalic atraumatic, mucous membranes moist and pink. Neck: Cervical and supraclavicular nodes normal without enlargement, trachea is midline, thyroid gland is normal without masses. Pulmonary: Clear to auscultation and percussion bilaterally. Cardiac: Regular rate and rhythm. No murmur Abdomen: Soft, nontender, nondistended, bowel sounds present all 4 quadrants, no guarding, no rigidity, no organomegaly. Extremities: No cyanosis, clubbing, no edema Neuro: Cranial nerves II through XII grossly intact, normal affect and speech, no focal motor deficits. Labs/Xrays ORDERING PHYSICIAN: CELESTINA GALINDO MD PROCEDURE(s): CXRP - CHEST PORTABLE REASON: SOB ORDER NUMBER(s): [id number], ACCESSION NUMBER(s): [id number] CHEST RADIOGRAPH Indication: SOB Technique: Single frontal view of the chest was obtained COMPARISON: XY CHEST PORTABLE on DOS: 04/14/23, CHEST PORTABLE on DOS: 10/13/21 FINDINGS: Lines and Tubes: None Lungs: Mild interstitial pulmonary edema. Pleura: No effusion. No pneumothorax. Cardiomediastinal contours: Unremarkable Bones: Unremarkable IMPRESSION: 1. Mild interstitial pulmonary edema. RING PHYSICIAN: CELESTINA GALINDO MD PROCEDURE(s): HWOCT - HEAD WITHOUT CONTRAST REASON: vertigo ORDER NUMBER(s): [id number], ACCESSION NUMBER(s): [id number] EXAM: CT HEAD WITHOUT CONTRAST INDICATION: vertigo TECHNIQUE: CT of the head without intravenous contrast. Radiation Dose : 1. Head: CT Dose: CTDI volume is 61 mGy. Dose-length product is 1224 mGy*cm The dose indicators for CT are the volume Computed Tomography (CT) Dose Index (CTDIvol) and the Dose Length Product (DLP), and are measured in units of mGy and mGy-cm, respectively. These indicators are not patient dose, but values generated from the CT scanner acquisition factors. The report includes radiation exposure data for exposures received during this examination. COMPARISON: HEAD WITHOUT CONTRAST on DOS: 10/12/21 FINDINGS: There is no evidence of acute intracranial hemorrhage, extra-axial collection, mass effect, midline shift, herniation or hydrocephalus. The ventricles, sulci and cisterns are age appropriate. The trinh-white differentiation is intact. Patchy periventricular and subcortical white matter hypoattenuation is nonspecific but may be related to small vessel ischemic disease. The visualized paranasal sinuses and mastoid air cells are clear. The surrounding soft tissues and osseous structures are unremarkable. IMPRESSION: 1. No acute intracranial abnormality. Radiation optimization: All CT scans at this facility use at least one of these dose optimization techniques: automated exposure control mA and/or kV adjustment per patient size (includes targeted exams where dose is matched to clinical indication) or iterative reconstruction. Labs Test 04/15/25 03:31 04/15/25 03:15 04/15/25 02:47 04/15/25 01:42 Range/Units Troponin I High Sensitivity 233 *H </=34 ng/L White Blood Count 15.1 H 4.4-10.8 10^3/uL Red Blood Count 5.23 H 4.0-5.20 10^6/uL Hemoglobin 14.9 12.2-16.2 g/dL Hematocrit 44.0 36.0-46.0 % Mean Corpuscular Volume 84.2 80.0-100.0 fL Mean Corpuscular Hemoglobin 28.5 28.0-32.0 pg Mean Corpuscular Hemoglobin Concent 33.9 32.0-36.0 g/dL Red Cell Distribution Width 15.1 H 11.8-14.3 % Platelet Count 231 140-450 10^3/uL Mean Platelet Volume 8.5 6.9-10.8 fL Neutrophils (%) (Auto) 82.7 H 37.0-80.0 % Lymphocytes (%) (Auto) 9.6 L 10.0-50.0 % Monocytes (%) (Auto) 6.8 0.0-12.0 % Eosinophils (%) (Auto) 0.2 0.0-7.0 % Basophils (%) (Auto) 0.7 0.0-2.0 % Neutrophils # (Auto) 12.5 H 1.6-8.6 10 ^3/uL Lymphocytes # (Auto) 1.4 0.4-5.4 10 ^3/uL Monocytes # (Auto) 1.0 0-1.3 10 ^3/uL Eosinophils # (Auto) 0 0-0.8 10 ^3/uL Basophils # (Auto) 0.1 0-0.2 10 ^3/uL Nucleated Red Blood Cells 0.0 % Sodium Level 142 136-145 mmol/L Potassium Level 4.0 3.5-5.1 mmol/L Chloride Level 104 98-107 mmol/L Carbon Dioxide Level 27 20-31 mmol/L Anion Gap 11 5-15 Blood Urea Nitrogen 15 9-23 mg/dL Creatinine 0.65 0.550-1.02 mg/dL Glomerular Filtration Rate Calc 93 >90 mL/min BUN/Creatinine Ratio 23.1 H 10.0-20.0 Serum Glucose 150 H 74-106 mg/dL Calcium Level 9.2 8.7-10.4 mg/dL Magnesium Level 2.0 1.6-2.6 mg/dL Total Bilirubin 0.4 0.2-1.0 mg/dL Aspartate Amino Transferase (AST) 11 L 13-40 U/L Alanine Aminotransferase (ALT) 14 7-40 U/L Alkaline Phosphatase 94 46-116 U/L B-Type Natriuretic Peptide 102.25 0-100 pg/mL Total Protein 6.4 5.7-8.2 g/dL Albumin 4.6 3.2-4.8 g/dL SEPSIS Sepsis Screen Date sepsis recognized/suspect: Apr 15, 2025 Time Sepsis recognized/suspect: 2347 Recent Procedure: No On Antibiotic Therapy: No Respiratory Rate >20: No Heart Rate >90: No Temp<36 C (96.8 F) or >38.3 C: No SBP <90 or MAP <65 mmHG: No New Acute Mental Status Change: No Is the patient on CPAP, BIPAP,: No Physician Orders Electrocardigram (04/14/25 23:50) Chest Portable (04/15/25 00:14) Troponin-I Hs (04/15/25 03:14) Head Without Contrast (04/15/25 00:14) Urinalysis (04/15/25 03:12) Lactic Acid W/ Reflex Order (04/15/25 03:12) Hydralazine Injection (Apresoline Inject (04/15/25 03:15) Metoprolol Tartrate Tablet (Lopressor Ta (04/15/25 10:00) Atorvastatin (Lipitor) (04/15/25 22:00) Aspirin Tablet (04/15/25 10:00) * Cardiology Consult (04/15/25 03:12) Basic Metabolic Panel (04/16/25 04:00) Admit (04/15/25 03:12) Ondansetron Hcl (Zofran) (04/15/25 03:15) Enoxaparin Sodium (Lovenox) (04/15/25 10:00) Complete Blood Count (04/16/25 04:00) Cardiac Diet-2gna,Lofat,Lochol (04/15/25 Breakfast) Echo 2d Mode Cardiac Dop (04/15/25 03:12) Condition: Fair (04/15/25 03:12) Acetaminophen Tablet (Tylenol Tablet) (04/15/25 03:15) Bedrest With Bathroom Privileg (04/15/25 03:12) Nitroglycerin Sublingual (Ntrostat Subli (04/15/25 03:15) Morphine Sulfate Injection (04/15/25 03:15) Stat Ekg For Chest Pain (04/15/25 03:12) Notify Md Of Changes From Base (04/15/25 03:12) Human Resources Supervisor For 24 Hours (04/15/25 03:12) Emergency Dysrhythmia Protocol (04/15/25 03:12) Rhythm Strips Once Every Shift (04/15/25 03:12) Oxygen By Nasal Cannula (04/15/25 03:12) Vital Signs Date Time Temp Pulse Resp B/P (MAP) Pulse Ox O2 Delivery O2 Flow Rate FiO2 04/15/25 02:45 152/56 04/15/25 02:15 208/68 04/15/25 02:14 208/97 04/15/25 00:18 69 04/14/25 23:48 97.2 70 20 183/95 (124) 89 97.2 04/14/25 23:46 69 Laboratory Tests Test 04/15/25 01:42 04/15/25 03:31 White Blood Count 15.1 10^3/uL (4.4-10.8) H Lactic Acid Level Pending Medications Medications Dose Ordered Sig/Aimee Route Start Time Stop Time Status Last Admin Dose Admin Aspirin 162 mg ONCE ONCE PO 04/15/25 02:30 04/15/25 02:31 DC 04/15/25 02:43 162 MG Furosemide 20 mg ONCE ONCE IV 04/15/25 02:45 04/15/25 02:46 DC 04/15/25 02:45 20 MG Hydralazine HCl 20 mg STK-MED ONCE .ROUTE 04/15/25 02:07 04/15/25 02:05 DC 04/15/25 02:14 20 MG Assessment/Plan Assessment/Plan Assessment Chest pain rule out ACS Hypertensive urgency Elevated troponin, possible demand ischemia Morbid obesity Plan Admit the patient to telemetry to the hospitalist ACS protocol Resume home medications Continue treatment per orders. Plan discussed with: Patient My Orders Orders - AMANDA SHEEHAN Procedure Category Date Status Time Urinalysis LAB 04/15/25 In Process 03:12 Lactic Acid W/ Reflex LAB 04/15/25 In Process Order 03:12 Hydralazine Injection PHA 04/15/25 In Process (Apresoline Inject 03:15 Metoprolol Tartrate PHA 04/15/25 In Process Tablet (Lopressor Ta 10:00 Atorvastatin (Lipitor) PHA 04/15/25 In Process 22:00 Aspirin Tablet PHA 04/15/25 In Process 10:00 * Cardiology Consult CONS 04/15/25 Transmitted 03:12 Basic Metabolic Panel LAB 04/16/25 Verified 04:00 Admit ADMIT 04/15/25 Transmitted 03:12 Ondansetron Hcl PHA 04/15/25 In Process (Zofran) 03:15 Enoxaparin Sodium PHA 04/15/25 In Process (Lovenox) 10:00 Complete Blood Count LAB 04/16/25 Verified 04:00 Cardiac DIET 04/15/25 Transmitted Diet-2gna,Lofat,Lochol Breakfast Echo 2d Mode Cardiac US 04/15/25 Logged DOP 03:12 Condition: Fair JEANETTE 04/15/25 In Process 03:12 Acetaminophen Tablet PHA 04/15/25 In Process (Tylenol Tablet) 03:15 Bedrest With Bathroom [facility] 04/15/25 In Process Privileg 03:12 Nitroglycerin PHA 04/15/25 In Process Sublingual (Ntrostat 03:15 Morphine Sulfate PHA 04/15/25 In Process Injection 03:15 Stat Ekg For Chest JEANETTE 04/15/25 In Process Pain 03:12 Notify Md Of Changes [facility] 04/15/25 In Process From Base 03:12 Human Resources Supervisor For [facility] 04/15/25 In Process 24 Hours 03:12 Emergency Dysrhythmia [facility] 04/15/25 In Process Protocol 03:12 Rhythm Strips Once [facility] 04/15/25 In Process Every Shift 03:12 Oxygen By Nasal RT 04/15/25 Transmitted Cannula 03:12 Date of Service: Apr 15, 2025 Billing Provider: SHEEHAN,EVELYNE AGACNP Common Visit Codes: [id number] INP/OBS CARE (HIGH) AMANDA SHEEHAN [facility] Apr 15, 2025 04:03
[2025-04-15 04:04] LABS: Urine Budding Yeast MANY /hpf (None Seen); Urine Protein, UAD 2+ (Negative)
[2025-04-15] MEDS: hydrALAZINE HCL 20 MG/ML VL IV PRN (05:49)
[2025-04-15] MEDS: ENOXAPARIN SOD 100 MG/1 ML SYRINGE SC ONE (06:25)
[2025-04-15] MEDS ORDERED: ENOXAPARIN SOD 40 MG/0.4 ML SYRINGE SC SCH (10:00)
[2025-04-15] MEDS: METOPROLOL TARTRATE 50 MG TAB PO SCH (10:27)
[2025-04-15] MEDS: ONDANSETRON HCL 4 MG/2 ML VIAL IV PRN (10:28)
[2025-04-15] MEDS: PIPERACILLIN-TAZOB 3.375GM 100 ML IV SCH (12:00)
[2025-04-15 13:30] LABS: Triglycerides 67 mg/dL (< 150)
--- NOTE | 2025-04-15 13:31 | ECG ---
[facility] Test Date: 2025-04-14 Test Time: 23:46:15 Pat Name: NUVIA LOU [facility] F Pulp Maker: melva : 1950 Requested By: EMERGENCY EMERGENCY Order Number: [id number] Reading MD: Eusebio Mckeon Measurements Intervals [place] Rate: 69 P: 25 WV: 192 QRS: 44 QRSD: 105 T: 34 QT: 475 QTc: 509 Interpretive Statements Sinus rhythm Probable anteroseptal infarct, old Prolonged QT interval Electronically Signed On 04-17-2025 17:49:23 PDT by Eusebio Mckeon Please click the below link to view image of tracing.
[2025-04-15 13:32] LABS: Cholesterol 196 mg/dL (< 200); HDL Cholesterol 51 mg/dL (40-59)
--- NOTE | 2025-04-15 13:40 | DVHINCON2 ---
Date Seen: Apr 15, 2025 Referring Physician CLIFFORD Mcgraw Reason for Consultation Chest pain History of Present Illness This is a 74-year-old female patient who presents to the emergency room with chief complaint of chest pain, dizziness, nausea, and vomiting. The patient reports that symptoms began at approximately 10:00 p.m. last night while she was sitting in her recliner. She describes the chest pain as unprovoked, intermittent, pressure-like in nature, midsternal and nonradiating. Associated symptoms include shortness of breath, dizziness, nausea, and vomiting. She came to the emergency room for further evaluations. Initial twelve lead electrocardiogram reveals normal sinus rhythm with prolonged QTc interval. Initial troponin level of 135ng/L with up trend thereafter. Significant past medical history includes hypertension, dyslipidemia, COPD, tobacco use and obesity. Past Medical History Past medical history reviewed. No other significant than mentioned above. Past Surgical History Right hip replacement Family History: Diabetes mellitus G8 MOTHER, Onset:Unknown Hypertension G8 MOTHER, Onset:Unknown Malignant melanoma G8 MOTHER, Onset:Unknown Family History Family history reviewed. Social History Patient has a 60 pack-year history, quit smoking approximately 23 years ago Denies any illicit drug use Denies any alcohol use Allergies: Coded Allergies: Penicillins (Verified Allergy, Unknown, 10/13/21) Home Meds Active Scripts Metoprolol Tartrate (Metoprolol Tartrate) 50 Mg Tab, 50 MG PO BID, #60 TAB Prov:CRISTIAN DAVID MD 04/17/23 Levofloxacin Hemihydrate (LEVAQUIN 500 MG) 500 Mg Tab, 1 TAB PO DAILY, #7 TAB Prov:CRISTIAN DAVID MD 04/17/23 Reported Medications Magnesium Oxide (MAGNESIUM OXIDE) 400 Mg Tab, 1 TAB PO DAILY, #30 TAB 5 Refills 04/15/23 Zinc Gluconate (Zinc) 10 Mg Amado, 10 MG MT for Immune support, AMADO 04/15/23 Glucosamine Sulfate (Glucosamine) 750 Mg Cap, 750 MG PO for Improval Joint movement , CAP 04/15/23 Calcium Carbonate (Calcium) 600 Mg Tab, 600 MG PO for Supplement, TAB 04/15/23 Ascorbic Acid (VITAMIN C TABLET) 500 Mg Tb, 1 TAB PO DAILY for Supplement, #30 TAB 04/15/23 B-Complex W/ Folic Acid (B Complex) Tab, 1 OR for Vitamin Supplement, TAB 04/15/23 Folic Rzna-Fawjzbqguc-Uqmolply (Folbic) Tab, 1 TAB PO DAILY for Supplement, #30 TAB 5 Refills 04/15/23 Tocopheryl Acetate, Dl-Alpha ( (Vitamin E) 90 Mg Cap, 90 MG PO for Skin improvement, CAP 04/15/23 Vitamin A (Synthetic) (Vitamin A) 1 Pow Pow, 1 POW XX DAILY for Supplement, POW 04/15/23 Cholecalciferol (VITAMIN D3) 2,000 Unit Tab, 1 TAB PO DAILY for Deficiency for 1 Day, #1 TAB 5 Refills 04/15/23 Home Meds Home medications reviewed. Current Medications Current Medications Medications (Trade) Dose Ordered Sig/Aimee Route PRN Reason Start Time Stop Time Status Last Admin Hydralazine HCl (Apresoline Injection) 10 mg Q6HP PRN IV SBP>150 04/15/25 03:15 04/15/25 05:49 Metoprolol Tartrate (Lopressor Tablet) 50 mg BID PO 04/15/25 10:00 04/15/25 10:27 Atorvastatin Calcium (Lipitor) 10 mg HS PO 04/15/25 22:00 Aspirin 162 mg DAILY PO 04/15/25 10:00 04/15/25 10:27 Ondansetron HCl (Zofran) 4 mg Q4HP PRN IV NAUSEA / VOMITING 04/15/25 03:15 04/15/25 10:28 Enoxaparin Sodium (Lovenox) 40 mg DAILY SC 04/15/25 10:00 04/15/25 06:17 DC Acetaminophen (Tylenol Tablet) 650 mg Q6HP PRN PO PAIN SCALE 1-3 OR TEMP>100.4 04/15/25 03:15 Nitroglycerin (Ntrostat Sublingual) 0.4 mg Q5MINP PRN SL FOR CHEST PAIN 04/15/25 03:15 Morphine Sulfate 2 mg Q30M PRN IV FOR CHEST PAIN 04/15/25 03:15 Piperacillin Sod/ Tazobactam Sod 100 ml @ 25 mls/hr Q6HR IV 04/15/25 12:00 Hold Azithromycin 250 ml @ 125 mls/hr DAILY IV 04/16/25 10:00 Metoclopramide HCl (Reglan Injection) 5 mg Q6HR IV 04/15/25 12:00 Pantoprazole Sodium (Protonix) 40 mg DAILY IV 04/16/25 10:00 Review of Systems Constitutional: No symptom reported Ears, Nose, & Throat: No symptom reported Eyes: No symptom reported Neurological: No symptoms reported Pulmonary/Respiratory: Shortness of breath Cardiovascular: Chest pain Gastrointestinal: Nausea and vomiting Genitourinary: No symptom reported Musculoskeletal: No symptom reported Skin: No symptom reported Psychiatric: No symptom reported Endocrine: No symptom reported Hematologic/Lymphatic: No symptom reported Vital Signs Vital Signs Date Time Temp Pulse Resp B/P (MAP) Pulse Ox O2 Delivery O2 Flow Rate FiO2 04/15/25 10:27 69 166/82 04/15/25 09:00 97.8 18 95 97.8 04/15/25 08:00 Nasal Cannula* 3 32 Physical Exam General Appearance: Cooperative. Morbidly obese Pulmonary/Respiratory: Clear, bilateral breaths sounds. Cardiovascular/Chest: Regular rate and rhythm. Peripheral Pulses: 2+ Radial (R). 2+ Radial (L). 2+ Pedal (R). 2+ Pedal (L). Abdominal Exam: Normal bowel sounds. Ankle Exam: Negative ankle edema Lower extremities: Negative lower extremity edema Neuro/Mental Status: A/OX4, coherent. Thoughts/Psych: Normal thought pattern. Appropriate mood and affect. Good judgment and insight. Appearance: No acute distress. Skin Exam: Normal inspection. Normal color. Warm and dry. Labs/Diagnostic Data Labs Test 04/15/25 04:40 04/15/25 03:31 04/15/25 03:15 04/15/25 01:42 Range/Units Troponin I High Sensitivity 452 *H </=34 ng/L Lactic Acid Level 1.3 0.4-2.0 mmol/L Urine Color Light-orange Yellow Urine Clarity Turbid H Clear Urine pH 5.0 5.0-9.0 Urine Specific [place] 1.042 H 1.001-1.035 Urine Protein 2+ H Negative Urine Ketones 3+ H Negative Urine Blood 3+ H Negative /uL Urine Nitrite Negative Negative Urine Bilirubin 1+ H Negative Urine Urobilinogen 3 H Negative mg/dL Urine Leukocyte Esterase Negative Negative /uL Urine RBC 127 0 - 4 /hpf Urine Microscopic WBC 63 H 0-5 /HPF Urine Squamous Epithelial Cells Few <5 /hpf Urine Bacteria None seen None Seen /hpf Urine Mucus Many None Seen Urine Yeast (Budding) Many None Seen /hpf Urine Glucose Trace Normal mg/dL White Blood Count 15.1 H 4.4-10.8 10^3/uL Red Blood Count 5.23 H 4.0-5.20 10^6/uL Hemoglobin 14.9 12.2-16.2 g/dL Hematocrit 44.0 36.0-46.0 % Mean Corpuscular Volume 84.2 80.0-100.0 fL Mean Corpuscular Hemoglobin 28.5 28.0-32.0 pg Mean Corpuscular Hemoglobin Concent 33.9 32.0-36.0 g/dL Red Cell Distribution Width 15.1 H 11.8-14.3 % Platelet Count 231 140-450 10^3/uL Mean Platelet Volume 8.5 6.9-10.8 fL Neutrophils (%) (Auto) 82.7 H 37.0-80.0 % Lymphocytes (%) (Auto) 9.6 L 10.0-50.0 % Monocytes (%) (Auto) 6.8 0.0-12.0 % Eosinophils (%) (Auto) 0.2 0.0-7.0 % Basophils (%) (Auto) 0.7 0.0-2.0 % Neutrophils # (Auto) 12.5 H 1.6-8.6 10 ^3/uL Lymphocytes # (Auto) 1.4 0.4-5.4 10 ^3/uL Monocytes # (Auto) 1.0 0-1.3 10 ^3/uL Eosinophils # (Auto) 0 0-0.8 10 ^3/uL Basophils # (Auto) 0.1 0-0.2 10 ^3/uL Nucleated Red Blood Cells 0.0 % Sodium Level 142 136-145 mmol/L Potassium Level 4.0 3.5-5.1 mmol/L Chloride Level 104 98-107 mmol/L Carbon Dioxide Level 27 20-31 mmol/L Anion Gap 11 5-15 Blood Urea Nitrogen 15 9-23 mg/dL Creatinine 0.65 0.550-1.02 mg/dL Glomerular Filtration Rate Calc 93 >90 mL/min BUN/Creatinine Ratio 23.1 H 10.0-20.0 Serum Glucose 150 H 74-106 mg/dL Calcium Level 9.2 8.7-10.4 mg/dL Magnesium Level 2.0 1.6-2.6 mg/dL Total Bilirubin 0.4 0.2-1.0 mg/dL Aspartate Amino Transferase (AST) 11 L 13-40 U/L Alanine Aminotransferase (ALT) 14 7-40 U/L Alkaline Phosphatase 94 46-116 U/L B-Type Natriuretic Peptide 102.25 0-100 pg/mL Total Protein 6.4 5.7-8.2 g/dL Albumin 4.6 3.2-4.8 g/dL Assessment NSTEMI, rule out coronary artery disease Hypertensive urgency Dyslipidemia Severe MAC Mild tricuspid regurgitation COPD History of tobacco use Morbid Obesity Plan/Recommendation We will continue with the following plan/recommendations (Dr. Dorsey): * Transthoracic echocardiogram reveals EF of 65% * Chest pain protocol * RUI score:2 points * HEART score: 6 points (moderate score) * Aggressive blood pressure control * Single antiplatelet therapy and lipid-lowering agent * Close Cardiac surveillance Patient seen and examined at bedside with . The patient was offered coronary angiogram with left heart catheterization. At this time, the patient would like to proceed with medical management instead. We will add Plavix therapy as well as a lipid-lowering agent. We will also add an PORFIRIO inhibitor for tighter blood pressure control. Thank you for allowing us to care for this patient. Please call with any questions or concerns. Critical care time spent: 44 minutes This medical document was created using an electronic medical record system with voice recognition software and computerized dictation system. Although this document has been carefully reviewed, there might still be some phonetic and typographical errors. Occasional wrong-word or ``sound-alike substitutions may have occurred due to the inherent limitations of voice recognition software. These areas are purely typographical due to imperfections of the software programs and do not reflect any compromise in the patient's medical care. Please read the chart carefully and recognize, using context, where these substitutions have occurred. Plan discussed with: Patient NYHA Physical activity limitations: NA Date of Service: Apr 15, 2025 Billing Provider: MARIA SESAY Cardiology Common Codes: [id number] INP/OBS CARE (High) Cardiology Consultation Codes: [id number] CONSULT <45MIN MARIA SESAY Apr 15, 2025 13:40
[2025-04-15] MEDS: METOCLOPRAMIDE HCL 5MG/ml INJ 2ml VIAL IV SCH (13:44)
[2025-04-15] MEDS: SODIUM CHLORIDE 0.9% 1,000 ML IV ONE (13:44)
[2025-04-15] MEDS: PANTOPRAZOLE 40 MG/10 ML VIAL INJ IV ONE (13:47)
--- NOTE | 2025-04-15 14:25 | DVHSR ---
APPROVED REPORT EXAM: Two-dimensional and M-mode echocardiogram with Doppler and color Doppler. Blood Pressure: 164/94 mmHg INDICATION Chest Pain RISK FACTORS Obesity: Height: 5'8, Weight: 259 DIMENSIONS LVDd4.8 (3.8-5.7cm)LA (2D)4.9 (1.9-4.0cm)Aortic Root2.9 (2.0-3.7cm) LVDs2.9 (2.5-4.0cm)LA (MM) (1.9-4.0cm)Aortic Cusp Exc0.6 (1.5-2.0cm) EF (%) 65.0 (55-70%)Rt. Atrium4.3 (1.9-4.0cm)Asc. Aorta3.7 cm IVSd1.2 (0.7-1.1cm)RV (D)4.7 (1.8-2.4cm) PWd1.3 (0.7-1.1cm) Mitral Valve MitralMitral Stenosis E wave1.00m/sMV Mean GR.3mmHg A wave1.39m/sMV Peak GR.86mmHg E/A ratio0.72D MVAcm2 DECEL [id number] 1/2 Timems Aortic Valve Aortic ValveAortic Stenosis V11.23m/Alexandre Mean GR.19mmHg V22.86m/Alexandre Peak GR.33mmHg LVOT Diameter2.1 (1.8-2.4cm)Doppler AVA1.49cm2 Pulmonic Valve V21.48m/s Tricuspid Valve TR Velocity2.88m/s [id number] Other Information Technically limited study due to body habitus. Conclusion lvef 65% moderate LVH severe MAC is noted, MS not evaulted, mild mitral regurg left atrium enlarged aortic sclerotic, mild restricted movement in systole mild tricuspid regurg
--- NOTE | 2025-04-15 15:25 | DVHPNRES ---
Progress Note Date Seen: Apr 15, 2025 Resident Creating Document: ALONDRA VALLADARES RESIDENT Medical Necessity Reason Pt with a Central, PICC or Fol: Yes Medical Necessity Reason Intense Nausea, unable to ambulate Subjective Review of Systems Patient is a 74-year-old female with prior medical history of hypertension, unspecified bronchial issue, hyperlipidemia, presented to the ED with chief complaint of chest pain. She states she was at rest when she had sudden onset of pressure like retrosternal pain, nonradiatin, intensity 2/10, with no relief, associated with nausea, diaphoresis, and 10+ emetic episodes about 1-2 hours after the consumption of deli meat. She denies chills, fever, and diarrhea. On evaluation in the ED, she was found in moderate distress, hypertensive, and saturating 89%. Initial labs showed WBC 15.1, Neutrophils 12.5, lactic acid 1.3, BUN 15, Creatinine 0.65, troponins 135, and BNP 102.25. 12 lead EKG showed NSR with QT interval prolongation. Chest xray shows mild interstitial pulmonary edema. Head CT show no acute intracranial abnormality. Her troponins continued to trend up to 233 and 452. She was admitted for further work up and monitoring, and was started on oxygen, antiemetic treatment, and Aspirin and Lovenox therapeutic dose. Surgical: 1 36 years ago, Hip replacement 2021 Social: Denies drug and alcohol use. States she previous intermittently smoked approximately 2 packs a day for 30 years, quitting in the early . Currently lives in her home with her son, states she feels safe. Patient seen at bedside. Patient states that she is still nauseous. She has been unable to sit up, ambulate around the room, and she has decreased appetite. She currently denies further emetic episodes, chest pain, diaphoresis, diarrhea, palpitations, fever or chills. She has been persistently hypertensive, for which her home regimen has been reimplemented. Other vitals have been stable, she continues to saturate appropriately on 2L O2 NC. She has been started on IV fluids and diet has been switched to full liquid. Given elevated troponins, Echocardiogram was ordered which showed LVEF 60%. She was seen by cardiology who recommend aggressive blood pressure control and close cardiac surveillance. Follow up labs have been ordered and antibiotic therapy has been initiated. We will continue to monitor. Review of Systems: Constitutional: Denies weight loss, fever and chills. HEENT: Denies changes in vision and hearing. Respiratory: Denies shortness of breath and cough Cardiovascular: Denies chest discomfort or palpitations GI: Refers decreased appetite, Denies abdominal distention, abdominal pain, diarrhea, new emetic episodes : Denies dysuria and urinary frequency. Musculoskeletal: Refers localized back pain Skin: Denies rash and pruritus. Neurological: Refers nausea denies, headache, vision or hearing problems Objective vital signs Vital Sign Date Time Temp Pulse Resp B/P (MAP) Pulse Ox O2 Delivery O2 Flow Rate FiO2 04/15/25 13:00 98.0 58 19 131/71 (91) 96 98.0 04/15/25 08:00 Nasal Cannula* 3 32 Total Intake and Output 04/14/25 04/14/25 04/15/25 15:00 23:00 07:00 Output Total 1475 ml Balance -1475 ml medications Current Medications Medications Dose Ordered Sig/Aimee Route Start Time Stop Time Status Last Admin Dose Admin Hydralazine HCl 10 mg Q6HP PRN IV 04/15/25 03:15 04/15/25 05:49 10 MG Metoprolol Tartrate 50 mg BID PO 04/15/25 10:00 04/15/25 10:27 50 MG Atorvastatin Calcium 10 mg HS PO 04/15/25 22:00 Acetaminophen 650 mg Q6HP PRN PO 04/15/25 03:15 Nitroglycerin 0.4 mg Q5MINP PRN SL 04/15/25 03:15 Morphine Sulfate 2 mg Q30M PRN IV 04/15/25 03:15 Piperacillin Sod/ Tazobactam Sod 100 ml @ 25 mls/hr Q6HR IV 04/15/25 12:00 Hold Azithromycin 250 ml @ 125 mls/hr DAILY IV 04/16/25 10:00 Metoclopramide HCl 5 mg Q6HR IV 04/15/25 12:00 04/15/25 13:44 5 MG Pantoprazole Sodium 40 mg DAILY IV 04/16/25 10:00 Lisinopril 5 mg DAILY PO 04/16/25 10:00 Aspirin 81 mg DAILY PO 04/16/25 10:00 UNV Examination Physical Exam: General: Patient seems uncomfortable, alert, oriented in person place and time. Patient following commands HEENT: Normocephalic, atraumatic, EOM intact, pink conjunctiva, dry mucous membrane Respiratory/pulmonary: Bilateral chest expansion, no pain to palpation, clear lungs bilaterally, vesicular murmurs present in almost all lung nguyen, no associated crackles or wheezes Cardiovascular: Normal RRR, normal S1 and S2, no associated murmurs Abdomen: Obese, abdomen nondistended, normal bowel sounds, tympanic to percussion, no pain to palpation in any of the abdominal quadrants, no palpable masses. : Simon catheter draining clear urine is present Extremities: No deformities, no peripheral edema present at the lower extremities, bilateral feet are cool to the touch, decreased pulses in bilateral feet Skin: No rashes or pruritus Neurological: Intact cranial nerves with no focal neurologic deficits laboratory and microbiology Laboratory Tests 04/15/25 01:42 Test 04/15/25 01:42 Range/Units Serum Glucose 150 H 74-106 mg/dL Problem List/Assessment/Plan Problem List/Assessment/Plan Assessment and Plan: NSTEMI, Rule out Type 1 vs Type 2 -Troponins: 135 - 233 - 452 -Cardiology: Recommend aggressive blood pressure control and close cardiac surveillance. -Aspirin: 162 mg PO once, aspirin 81 mg PO daily -Lovenox 120 mg SC once -Morphine 2 mg IV q30 PRN -Nitroglycerin 0.4 mg SL q5 min PRN -Acetaminophen 650 mg PO q6 PRN Acute chest pain, rule out ACS -As above Chronic diastolic heart failure -Echo EF 65%, LVH Pulmonary Edema -Chest Xray: Mild interstitial pulmonary edema -Lasix 20 mg IV once Possible Acute gastroenteritis, possibly infectious Intractable nausea and vomiting, possibly to above Dehydration due to above -IV fluids -Zofran 4 mg IV q4 PRN, discontinued -Metoclopramide 5 mg IV q6 Possible aspiration? -Azithromycin 500 mg IV daily, stopped -Doxycycline 100 mg IV BID -Zosyn IV daily Hypertensive urgency Hypertension -Hydralazine 10 mg IV once -Hydralazine 10 mg IV q6 PRN SBP >150 -Metoprolol tartrate 50 mg PO BID -Lisinopril 5 mg PO daily History of Hyperlipidemia -Atorvastatin 10 mg Morbid obesity, BMI: 39.5 kg/m2 -Counseled extensively on lifestyle modifications and weight loss Case discussed with Dr. Vance Goals of care discussed with the patient for over 25 minutes, who states she understands and agrees. FULL CODE. Plan discussed with: Patient My Orders My Orders Orders - ALONDRA VALLADARES Procedure Category Date Status Time Blood Culture LANA 04/15/25 In Process 12:50 Pantoprazole PHA 04/16/25 In Process (Protonix) 10:00 Urine Bacterial LANA 04/15/25 In Process Culture 12:51 Date of Service: Apr 15, 2025 Billing Provider: COLEMAN VANCE MD Common Visit Codes: [id number] INP/OBS CARE(HIGH) Secondary Visit Codes: [id number] CARE PLAN 30 MINUTES ALONDRA VALLADARES Apr 15, 2025 15:25 COLEMAN VANCE MD Apr 16, 2025 21:28
[2025-04-15] MEDS: AZITHROMYCIN 500MG/ 250ML 250 ML IV ONE (16:00)
[2025-04-15] MEDS: LISINOPRIL 5 MG TAB PO ONE (16:02)
--- NOTE | 2025-04-15 16:51 | DVHINCON2 ---
Date of service: Apr 15, 2025 History of Present Illness History of Present Illness This is a 74-year-old female patient who presents to the emergency room with chief complaint of chest pain, dizziness, nausea, and vomiting. The patient reports that symptoms began at approximately 10:00 p.m. last night while she was sitting in her recliner. She describes the chest pain as unprovoked, intermittent, pressure-like in nature, midsternal and nonradiating. Associated symptoms include shortness of breath, dizziness, nausea, and vomiting. She came to the emergency room for further evaluations. Initial twelve lead electrocardiogram reveals normal sinus rhythm with prolonged QTc interval. Initial troponin level of 135ng/L with up trend thereafter. Significant past medical history includes hypertension, dyslipidemia, COPD, tobacco use and obe sity. Past Medical History Past Medical History Past medical history reviewed. No other significant than mentioned above. Past Surgical History Past Surgical History Right hip replacement Family & Social History Family History: Diabetes mellitus G8 MOTHER, Onset:Unknown Hypertension G8 MOTHER, Onset:Unknown Malignant melanoma G8 MOTHER, Onset:Unknown Family History Family history reviewed. Social History Patient has a 60 pack-year history, quit smoking approximately 23 years ago Denies any illicit drug use Denies any alcohol use Past Medical History reviewed Family History: Diabetes mellitus G8 MOTHER, Onset:Unknown Hypertension G8 MOTHER, Onset:Unknown Malignant melanoma G8 MOTHER, Onset:Unknown Allergies: Coded Allergies: Penicillins (Verified Allergy, Unknown, 10/13/21) Home Meds Active Scripts Metoprolol Tartrate (Metoprolol Tartrate) 50 Mg Tab, 50 MG PO BID, #60 TAB Prov:CRISTIAN DAVID MD 04/17/23 Levofloxacin Hemihydrate (LEVAQUIN 500 MG) 500 Mg Tab, 1 TAB PO DAILY, #7 TAB Prov:CRISTIAN DAVID MD 04/17/23 Reported Medications Magnesium Oxide (MAGNESIUM OXIDE) 400 Mg Tab, 1 TAB PO DAILY, #30 TAB 5 Refills 04/15/23 Zinc Gluconate (Zinc) 10 Mg Amado, 10 MG MT for Immune support, AMADO 04/15/23 Glucosamine Sulfate (Glucosamine) 750 Mg Cap, 750 MG PO for Improval Joint movement , CAP 04/15/23 Calcium Carbonate (Calcium) 600 Mg Tab, 600 MG PO for Supplement, TAB 7/28/23 Ascorbic Acid (VITAMIN C TABLET) 500 Mg Tb, 1 TAB PO DAILY for Supplement, #30 TAB 04/15/23 B-Complex W/ Folic Acid (B Complex) Tab, 1 OR for Vitamin Supplement, TAB 04/15/23 Folic Lxqi-Nxhtgxmstp-Enfulggq (Folbic) Tab, 1 TAB PO DAILY for Supplement, #30 TAB 5 Refills 04/15/23 Tocopheryl Acetate, Dl-Alpha ( (Vitamin E) 90 Mg Cap, 90 MG PO for Skin improvement, CAP 04/15/23 Vitamin A (Synthetic) (Vitamin A) 1 Pow Pow, 1 POW XX DAILY for Supplement, POW 04/15/23 Cholecalciferol (VITAMIN D3) 2,000 Unit Tab, 1 TAB PO DAILY for Deficiency for 1 Day, #1 TAB 5 Refills 04/15/23 Current Medications Current Medications Medications (Trade) Dose Ordered Sig/Aimee Route PRN Reason Start Time Stop Time Status Last Admin Hydralazine HCl (Apresoline Injection) 10 mg Q6HP PRN IV SBP>150 04/15/25 03:15 04/15/25 05:49 Metoprolol Tartrate (Lopressor Tablet) 50 mg BID PO 04/15/25 10:00 04/15/25 10:27 Atorvastatin Calcium (Lipitor) 10 mg HS PO 04/15/25 22:00 04/15/25 16:15 DC Aspirin 162 mg DAILY PO 04/15/25 10:00 04/15/25 14:44 DC 04/15/25 10:27 Ondansetron HCl (Zofran) 4 mg Q4HP PRN IV NAUSEA / VOMITING 04/15/25 03:15 04/15/25 14:45 DC 04/15/25 10:28 Enoxaparin Sodium (Lovenox) 40 mg DAILY SC 04/15/25 10:00 04/15/25 06:17 DC Acetaminophen (Tylenol Tablet) 650 mg Q6HP PRN PO PAIN SCALE 1-3 OR TEMP>100.4 04/15/25 03:15 Nitroglycerin (Ntrostat Sublingual) 0.4 mg Q5MINP PRN SL FOR CHEST PAIN 04/15/25 03:15 Morphine Sulfate 2 mg Q30M PRN IV FOR CHEST PAIN 04/15/25 03:15 Piperacillin Sod/ Tazobactam Sod 100 ml @ 25 mls/hr Q6HR IV 04/15/25 12:00 Hold Azithromycin 250 ml @ 125 mls/hr DAILY IV 04/16/25 10:00 Metoclopramide HCl (Reglan Injection) 5 mg Q6HR IV 04/15/25 12:00 04/15/25 13:44 Pantoprazole Sodium (Protonix) 40 mg DAILY IV 04/16/25 10:00 Lisinopril (Zestril Tablet) 5 mg DAILY PO 04/16/25 10:00 Aspirin 81 mg DAILY PO 04/16/25 10:00 04/15/25 16:15 DC Doxycycline Hyclate 100 ml @ 50 mls/hr Q12H IV 04/15/25 15:15 Atorvastatin Calcium (Lipitor) 20 mg HS PO 04/15/25 22:00 UNV Clopidogrel Bisulfate (Plavix) 75 mg DAILY PO 04/16/25 10:00 UNV Review of Systems 10 pt ros otherwise negative Vital Signs Vital Signs Date Time Temp Pulse Resp B/P (MAP) Pulse Ox O2 Delivery O2 Flow Rate FiO2 04/15/25 16:02 131/71 04/15/25 13:00 98.0 58 19 96 98.0 04/15/25 08:00 Nasal Cannula* 3 32 Physical Exam nad s1 s2 rrr ctab soft nt/nd +1 edema Labs/Diagnostic Data Labs Test 04/15/25 04:40 04/15/25 03:31 04/15/25 03:15 04/15/25 01:42 Range/Units Hemoglobin A1c 6.0 H <5.7 % A1C Troponin I High Sensitivity 452 *H </=34 ng/L Triglycerides Level 67 < 150 mg/dL Cholesterol Level 196 < 200 mg/dL LDL Cholesterol 148 H < 100 mg/dL HDL Cholesterol 51 40-59 mg/dL Thyroid Stimulating Hormone (TSH) 1.44 0.55-4.78 uIU/mL Lactic Acid Level 1.3 0.4-2.0 mmol/L Urine Color Light-orange Yellow Urine Clarity Turbid H Clear Urine pH 5.0 5.0-9.0 Urine Specific Eldred 1.042 H 1.001-1.035 Urine Protein 2+ H Negative Urine Ketones 3+ H Negative Urine Blood 3+ H Negative /uL Urine Nitrite Negative Negative Urine Bilirubin 1+ H Negative Urine Urobilinogen 3 H Negative mg/dL Urine Leukocyte Esterase Negative Negative /uL Urine RBC 127 0 - 4 /hpf Urine Microscopic WBC 63 H 0-5 /HPF Urine Squamous Epithelial Cells Few <5 /hpf Urine Bacteria None seen None Seen /hpf Urine Mucus Many None Seen Urine Yeast (Budding) Many None Seen /hpf Urine Glucose Trace Normal mg/dL White Blood Count 15.1 H 4.4-10.8 10^3/uL Red Blood Count 5.23 H 4.0-5.20 10^6/uL Hemoglobin 14.9 12.2-16.2 g/dL Hematocrit 44.0 36.0-46.0 % Mean Corpuscular Volume 84.2 80.0-100.0 fL Mean Corpuscular Hemoglobin 28.5 28.0-32.0 pg Mean Corpuscular Hemoglobin Concent 33.9 32.0-36.0 g/dL Red Cell Distribution Width 15.1 H 11.8-14.3 % Platelet Count 231 140-450 10^3/uL Mean Platelet Volume 8.5 6.9-10.8 fL Neutrophils (%) (Auto) 82.7 H 37.0-80.0 % Lymphocytes (%) (Auto) 9.6 L 10.0-50.0 % Monocytes (%) (Auto) 6.8 0.0-12.0 % Eosinophils (%) (Auto) 0.2 0.0-7.0 % Basophils (%) (Auto) 0.7 0.0-2.0 % Neutrophils # (Auto) 12.5 H 1.6-8.6 10 ^3/uL Lymphocytes # (Auto) 1.4 0.4-5.4 10 ^3/uL Monocytes # (Auto) 1.0 0-1.3 10 ^3/uL Eosinophils # (Auto) 0 0-0.8 10 ^3/uL Basophils # (Auto) 0.1 0-0.2 10 ^3/uL Nucleated Red Blood Cells 0.0 % Sodium Level 142 136-145 mmol/L Potassium Level 4.0 3.5-5.1 mmol/L Chloride Level 104 98-107 mmol/L Carbon Dioxide Level 27 20-31 mmol/L Anion Gap 11 5-15 Blood Urea Nitrogen 15 9-23 mg/dL Creatinine 0.65 0.550-1.02 mg/dL Glomerular Filtration Rate Calc 93 >90 mL/min BUN/Creatinine Ratio 23.1 H 10.0-20.0 Serum Glucose 150 H 74-106 mg/dL Calcium Level 9.2 8.7-10.4 mg/dL Magnesium Level 2.0 1.6-2.6 mg/dL Total Bilirubin 0.4 0.2-1.0 mg/dL Aspartate Amino Transferase (AST) 11 L 13-40 U/L Alanine Aminotransferase (ALT) 14 7-40 U/L Alkaline Phosphatase 94 46-116 U/L B-Type Natriuretic Peptide 102.25 0-100 pg/mL Total Protein 6.4 5.7-8.2 g/dL Albumin 4.6 3.2-4.8 g/dL Assessment nstemi obesity copd tobaco htn hl Plan/Recommendation offered [facility] vs medical therapy pt elected for medical start plavix statin bp control cont abx per primary servce agree with TRANSLATOR DEAF assessment and plan Plan discussed with: Patient RICHMOND BAUTISTA MD Apr 15, 2025 16:51
[2025-04-15] MEDS: DOXYCYCLINE 100MG/100ML 100 ML IV SCH (19:29)
[2025-04-15] MEDS: ATORVASTATIN 20 MG TAB PO SCH (21:22)
[2025-04-15] MEDS ORDERED: ATORVASTATIN 20 MG TAB PO SCH (22:00)
[2025-04-16] VITALS (8 sets, daily range): BP systolic 118–161; BP diastolic 47–72; PULSE 61–74; RESP 17–20; TEMP 97.9–98.7; O2SAT 91–99
[2025-04-16 00:58] LABS: INR 0.97 (0.9-1.15); Partial Thromboplastin Time 31.5 SEC (24.5-34.5); Prothrombin Time 10.3 sec (9.3-11.8)
[2025-04-16] MEDS: HEPARIN DRIP/D5W 100UNITS/ML 250 ML IV SCH (02:05)
[2025-04-16] MEDS ORDERED: DOXYCYCLINE 100MG/100ML 100 ML IV SCH (06:30)
[2025-04-16 07:15] LABS: Hematocrit 44.8 % (36.0-46.0); Hemoglobin 14.8 g/dL (12.2-16.2); Mean Corpuscular Hemoglobin 28.0 pg (28.0-32.0); Mean Corpuscular Volume 84.8 fL (80.0-100.0); Nucleated Red Blood Cells % 0.1 %
[2025-04-16 07:23] LABS: Chloride 107 mmol/L (98-107); Potassium 3.8 mmol/L (3.5-5.1); Sodium 141 mmol/L (136-145)
[2025-04-16 07:24] LABS: Anion Gap 7 (5-15); Calcium 9.9 mg/dL (8.7-10.4); Carbon Dioxide 27 mmol/L (20-31)
[2025-04-16 07:29] LABS: BUN/Creatinine Ratio 16.9 (10.0-20.0); Blood Urea Nitrogen 10 mg/dL (9-23); Glucose 104 mg/dL (74-106)
[2025-04-16] MEDS: DOXYCYCLINE 100MG/100ML 100 ML IV SCH (08:55)
[2025-04-16 09:53] LABS: INR 0.98 (0.9-1.15); Partial Thromboplastin Time 32.2 SEC (24.5-34.5); Prothrombin Time 10.4 sec (9.3-11.8)
[2025-04-16] MEDS: PANTOPRAZOLE 40 MG/10 ML VIAL INJ IV SCH (10:00)
[2025-04-16] MEDS ORDERED: AZITHROMYCIN 500MG/ 250ML 250 ML IV SCH (10:00)
[2025-04-16] MEDS: LISINOPRIL 5 MG TAB PO SCH (10:00)
[2025-04-16] MEDS ORDERED: CLOPIDOGREL BISULFATE 75 MG TAB PO SCH (10:00)
[2025-04-16] MEDS: IODIXANOL 320MG/ML 100ML BTL IV ONE (10:33)
[2025-04-16] MEDS: SODIUM CHL 0.9% 0 ML ONE (10:44)
[2025-04-16] MEDS: LIDOCAINE 2%HCL (LOCAL ANESTH.) INJ 20ML MDV ONE (10:44)
[2025-04-16] MEDS: ANGIOMAX 250 MG VIAL IV ONE (10:44)
[2025-04-16] MEDS: VERAPAMIL 2.5MG/ML INJ 2ML VIAL IV ONE (10:45)
[2025-04-16] MEDS: HEPARIN SODIUM (PORCINE) 5000 UNITS/ML 1ML VIAL ONE (10:45)
[2025-04-16] MEDS: MIDAZOLAM HCL 2MG/2ML 2ml VIAL (1mg/ml) ONE (10:59)
[2025-04-16] MEDS: fentaNYL CITRATE 100 MCG/2 ML VL ONE (10:59)
--- NOTE | 2025-04-16 12:33 | DVHOP2 ---
Operative Report Operative Report CARDIAC KEELER POLYGRAPH OPERATOR PROCEDURE REPORT [place], [place] Date of Service: 04/16/25 Third Hand: Richmond Bautista MD PROCEDURES PERFORMED: Coronary angiogram, left heart catheterization, conscious sedation administration and supervision, less than 15 minutes; fluoroscopy use and interpretation. sedation 15-30 mins PREOPERATIVE DIAGNOSES: nstemi POSTOP DIAGNOSIS: DESCRIPTION OF PROCEDURE: The patient or appropriate family signed informed consent understanding the risks, benefits and alternatives of the procedure, they wished to proceed. The patient was brought to the cardiac warehouse general laborer in n.p.o. state. The patient was prepped in a sterile fashion. Sedation was used per cardiac cath protocol. I administered 2 mL of 2% lidocaine to the right wrist. With an antegrade front wall puncture. I cannulated the right radial artery and placed a 6-[place] Glidesheath slender. Next, an intra-arterial spasmolytic was administered. Next, a 5F tiger was used but i was unable to get into ascending aorta likely 2/2 to tortuosity vs brachiocephalic occlusion and angio done. I attempted with glidewire as well. as pt requested non femoral access i obliged and accessed the Left radial artery and placed a6F sheath with 1 attempt. IA spasmolytic given again. Next I used a 4F JR4, JL4, 6F JL4.5 and 6F JL4 were used for coronary angiogram aAt the completion of procedure, all guides and wires were removed, and there were no immediate complications. 4000 U of IV heparin given FINDINGS: RCA: Moderate vessel off the right sinus of Valsalva, there is no severe flow limiting stenosis. LEFT MAIN: Moderate size left main, it bifurcates into LAD and circumflex. no stenosis CIRCUMFLEX: Moderate caliber vessel coming off the left main with no flow limiting stenosis. LAD: LAD is a moderate caliber vessel coming of the left main. no stenosis. mild plaquing in mid to distal LAD CONCLUSIONS: 1. NO severe cad PLAN: Aggressive risk factor modification and medical management for the patient. RICHMOND BAUTISTA MD Apr 16, 2025 12:33
--- NOTE | 2025-04-16 12:34 | DVHPN2 ---
Progress Note Date Seen: Apr 16, 2025 Medical Necessity Reason Pt with a Central, PICC or Fol: Yes Subjective Patient reports: Feels better Objective vital signs Vital Sign Date Time Temp Pulse Resp B/P (MAP) Pulse Ox O2 Delivery O2 Flow Rate FiO2 04/16/25 10:01 74 139/67 04/16/25 08:49 98.2 20 91 98.2 04/15/25 20:00 Nasal Cannula* 2 28 Total Intake and Output 04/15/25 04/15/25 04/16/25 14:59 22:59 06:59 Intake Total 1500 ml 250 ml Output Total 850 ml 850 ml Balance 650 ml -600 ml medications Current Medications Medications Dose Ordered Sig/Aimee Route Start Time Stop Time Status Last Admin Dose Admin Hydralazine HCl 10 mg Q6HP PRN IV 04/15/25 03:15 04/16/25 04:09 10 MG Metoprolol Tartrate 50 mg BID PO 04/15/25 10:00 04/16/25 10:01 50 MG Acetaminophen 650 mg Q6HP PRN PO 04/15/25 03:15 Nitroglycerin 0.4 mg Q5MINP PRN SL 04/15/25 03:15 Morphine Sulfate 2 mg Q30M PRN IV 04/15/25 03:15 Piperacillin Sod/ Tazobactam Sod 100 ml @ 25 mls/hr Q6HR IV 04/15/25 12:00 Hold Metoclopramide HCl 5 mg Q6HR IV 04/15/25 12:00 04/16/25 05:51 5 MG Pantoprazole Sodium 40 mg DAILY IV 04/16/25 10:00 04/16/25 10:00 40 MG Lisinopril 5 mg DAILY PO 04/16/25 10:00 04/16/25 10:00 5 MG Atorvastatin Calcium 20 mg HS PO 04/15/25 22:00 04/15/25 21:22 20 MG Clopidogrel Bisulfate 75 mg DAILY PO 04/16/25 10:00 Hold Doxycycline Hyclate 100 ml @ 50 mls/hr Q12H IV 04/16/25 08:00 04/16/25 08:55 50 MLS/HR Examination: GENERAL:Abnormal, HEENT:Abnormal, LUNGS:Abnormal, CVS:Abnormal, ABDOMEN:Abnormal laboratory and microbiology Laboratory Tests 04/16/25 07:05 Test 04/16/25 07:05 Range/Units Serum Glucose 104 74-106 mg/dL Microbiology Date/Time Source Procedure Growth Status 04/15/25 03:15 Voided Urine Urine Culture - Preliminary Resulted Problem List/Assessment/Plan Problem List/Assessment/Plan sp cath nstemi obesity htn copd tobacco ex HL cont asa, statin Lh was - cont abx and BP meds dc home when stable signing off Plan discussed with: Patient My Orders My Orders Orders - RICHMOND BAUTISTA MD Procedure Category Date Status Time Cl Left Heart Cath CL 04/16/25 Taken 10:16 Date of Service: Apr 16, 2025 Billing Provider: RICHMOND BAUTISTA MD Common Visit Codes: NOT BILLABLE RICHMOND BAUTISTA MD Apr 16, 2025 12:34
--- NOTE | 2025-04-16 14:29 | DVHPNRES ---
Progress Note Date Seen: Apr 16, 2025 Resident Creating Document: ALONDRA VALLADARES RESIDENT Medical Necessity Reason Pt with a Central, PICC or Fol: Yes Subjective Review of Systems Patient is a 74-year-old female with prior medical history of hypertension, unspecified bronchial issue, hyperlipidemia, presented to the ED with chief complaint of chest pain. She states she was at rest when she had sudden onset of pressure like retrosternal pain, nonradiatin, intensity 2/10, with no relief, associated with nausea, diaphoresis, and 10+ emetic episodes about 1-2 hours after the consumption of deli meat. She denies chills, fever, and diarrhea. On evaluation in the ED, she was found in moderate distress, hypertensive, and saturating 89%. Initial labs showed WBC 15.1, Neutrophils 12.5, lactic acid 1.3, BUN 15, Creatinine 0.65, troponins 135, and BNP 102.25. 12 lead EKG showed NSR. Chest xray shows mild interstitial pulmonary edema. Head CT show no acute intracranial abnormality. Her troponins continued to trend up to 233 and 452. She was admitted for further work up and monitoring, and was started on oxygen, antiemetic treatment, and Aspirin and Lovenox therapeutic dose. Patient was persistently hypertensive for which her home medications were restarted. She was started on IV fluids. Echocardiogram was ordered which showed LVEF 65% with moderate LVH. She was seen by cardiology who recommended left heart catheterization, however patient initially refused choosing medical treatment instead. Per cardiology, she was started on Plavix and a lipid lowering agent was recommended. Patient seen at bedside. Patient states she states she feels better, however refers anxiety. She currently denies further chest pain, dizziness, vomiting, palpitations, diaphoresis, and other symptoms. Patient was counseled yesterday by myself over the benefits and risks of not going forward with left heart catheterization. Over night, follow up troponins show 1017 (up from 452). She was started on IV heparin drip. This morning, patient was counseled again about the risks of foregoing left heart catheterization. Reasons for refusal were thoroughly explored, and procedure was thoroughly explained. Patient stated that she understood, and would go forward with the procedure. Heparin and Plavix were held and patient was taken to the cathodic protection technician for CT angiography showing no severe CAD without indication for stent placement. Objective vital signs Vital Sign Date Time Temp Pulse Resp B/P (MAP) Pulse Ox O2 Delivery O2 Flow Rate FiO2 04/16/25 10:01 74 139/67 04/16/25 08:49 98.2 20 91 98.2 04/15/25 20:00 Nasal Cannula* 2 28 Total Intake and Output 04/15/25 04/15/25 04/16/25 15:00 23:00 07:00 Intake Total 1500 ml 250 ml Output Total 850 ml 850 ml Balance 650 ml -600 ml medications Current Medications Medications Dose Ordered Sig/Aimee Route Start Time Stop Time Status Last Admin Dose Admin Hydralazine HCl 10 mg Q6HP PRN IV 04/15/25 03:15 04/16/25 04:09 10 MG Metoprolol Tartrate 50 mg BID PO 04/15/25 10:00 04/16/25 10:01 50 MG Acetaminophen 650 mg Q6HP PRN PO 04/15/25 03:15 Nitroglycerin 0.4 mg Q5MINP PRN SL 04/15/25 03:15 Morphine Sulfate 2 mg Q30M PRN IV 04/15/25 03:15 Piperacillin Sod/ Tazobactam Sod 100 ml @ 25 mls/hr Q6HR IV 04/15/25 12:00 Hold Metoclopramide HCl 5 mg Q6HR IV 04/15/25 12:00 04/16/25 05:51 5 MG Pantoprazole Sodium 40 mg DAILY IV 04/16/25 10:00 04/16/25 10:00 40 MG Lisinopril 5 mg DAILY PO 04/16/25 10:00 04/16/25 10:00 5 MG Atorvastatin Calcium 20 mg HS PO 04/15/25 22:00 04/15/25 21:22 20 MG Clopidogrel Bisulfate 75 mg DAILY PO 04/16/25 10:00 Hold Doxycycline Hyclate 100 ml @ 50 mls/hr Q12H IV 04/16/25 08:00 04/16/25 08:55 50 MLS/HR Examination Physical Exam: General: Patient seems comfortable but anxious, alert, oriented in person place and time. Patient following commands HEENT: Normocephalic, atraumatic, EOM intact, pink conjunctiva, dry mucous membrane Respiratory/pulmonary: Bilateral chest expansion, no pain to palpation, clear lungs bilaterally, vesicular murmurs present in almost all lung nguyen, no associated crackles or wheezes Cardiovascular: Normal RRR, normal S1 and S2, no associated murmurs Abdomen: Obese, abdomen nondistended, normal bowel sounds, tympanic to percussion, no pain to palpation in any of the abdominal quadrants, no palpable masses. : Simon catheter draining clear urine is present Extremities: No deformities, no peripheral edema present at the lower extremities, bilateral feet are cool to the touch, decreased pulses in bilateral feet Skin: No rashes or pruritus Neurological: Intact cranial nerves with no focal neurologic deficits laboratory and microbiology Laboratory Tests 04/16/25 07:05 Test 04/16/25 07:05 Range/Units Serum Glucose 104 74-106 mg/dL Microbiology Date/Time Source Procedure Growth Status 04/15/25 03:15 Voided Urine Urine Culture - Preliminary Resulted Problem List/Assessment/Plan Problem List/Assessment/Plan Assessment and Plan: NSTEMI, Rule out Type 1 vs Type 2 -Troponins: 135 - 233 - 452 -Cardiology: Recommend aggressive blood pressure control and close cardiac surveillance. -Aspirin: 162 mg PO once, aspirin 81 mg PO daily -Lovenox 120 mg SC once -Morphine 2 mg IV q30 PRN -Nitroglycerin 0.4 mg SL q5 min PRN -Plavix 75 mg PO daily -Acetaminophen 650 mg PO q6 PRN -S/p Coronary Angiography: No severe CAD Acute chest pain, rule out ACS -As above Chronic diastolic heart failure -Echo EF 65%, LVH Pulmonary Edema -Chest Xray: Mild interstitial pulmonary edema -Lasix 20 mg IV once Possible Acute gastroenteritis, possibly infectious Intractable nausea and vomiting, possibly to above Dehydration due to above -IV fluids -Zofran 4 mg IV q4 PRN, discontinued -Metoclopramide 5 mg IV q6 Possible aspiration? -Azithromycin 500 mg IV daily, stopped -Doxycycline 100 mg IV BID -Zosyn IV daily Hypertensive urgency Hypertension -Hydralazine 10 mg IV once -Hydralazine 10 mg IV q6 PRN SBP >150 -Metoprolol tartrate 50 mg PO BID -Lisinopril 5 mg PO daily History of Hyperlipidemia -Atorvastatin 10 mg Morbid obesity, BMI: 39.5 kg/m2 -Counseled extensively on lifestyle modifications and weight loss Case discussed with Dr. Vance Goals of care discussed with the patient for over 25 minutes, who states she understands and agrees. FULL CODE. Plan discussed with: Patient Date of Service: Apr 16, 2025 Billing Provider: COLEMAN VANCE MD Common Visit Codes: [id number] INP/OBS CARE(HIGH) ALONDRA VALLADARES RESIDENT Apr 16, 2025 14:29 COLEMAN VANCE MD Apr 16, 2025 21:29
[2025-04-17 00:30] VITALS: BP 162/91; PULSE 66; RESP 20; TEMP 98.2; O2SAT 91
[2025-04-17 04:41] VITALS: BP 149/75; PULSE 74; RESP 18; TEMP 98; O2SAT 95
[2025-04-17 05:18] LABS: Hematocrit 46.1 % (36.0-46.0); Hemoglobin 15.5 g/dL (12.2-16.2); Mean Corpuscular Hemoglobin 28.9 pg (28.0-32.0); Mean Corpuscular Volume 86.1 fL (80.0-100.0); Nucleated Red Blood Cells % 0.1 %
[2025-04-17 05:27] LABS: Chloride 105 mmol/L (98-107); Potassium 3.8 mmol/L (3.5-5.1); Sodium 139 mmol/L (136-145)
[2025-04-17 05:28] LABS: Anion Gap 8 (5-15); Carbon Dioxide 26 mmol/L (20-31)
[2025-04-17 05:29] LABS: Calcium 9.5 mg/dL (8.7-10.4)
[2025-04-17 05:33] LABS: BUN/Creatinine Ratio 16.4 (10.0-20.0); Blood Urea Nitrogen 10 mg/dL (9-23)
[2025-04-17 05:34] LABS: Glucose 110 mg/dL (74-106)
[2025-04-17 08:00] VITALS: PULSE 70; PULSE 83; RESP 16; O2SAT 93
[2025-04-17] MEDS: ACETAMINOPHEN 325 MG TAB PO PRN (11:49)
[2025-04-17] MEDS ORDERED: DOXY-346 PO (11:50)
[2025-04-17 14:05] VITALS: BP 148/80; PULSE 62; RESP 14; TEMP 97.8; O2SAT 94
--- NOTE | 2025-04-17 14:39 | DVHDSRES ---
Discharge Summary Date of Admission Resident Creating Document: ALONDRA VALLADARES RESIDENT Apr 15, 2025 at 03:12 Date of Discharge: Apr 17, 2025 Admitting Diagnosis Intractable Nausea and Vomiting Wounds: No wounds Labs/Diagnostic Data: Laboratory Results Test 04/17/25 04:53 04/16/25 08:56 04/15/25 22:39 04/15/25 04:40 White Blood Count 14.7 10^3/uL (4.4-10.8) Red Blood Count 5.35 10^6/uL (4.0-5.20) Hemoglobin 15.5 g/dL (12.2-16.2) Hematocrit 46.1 % (36.0-46.0) Mean Corpuscular Volume 86.1 fL (80.0-100.0) Mean Corpuscular Hemoglobin 28.9 pg (28.0-32.0) Mean Corpuscular Hemoglobin Concent 33.6 g/dL (32.0-36.0) Red Cell Distribution Width 15.2 % (11.8-14.3) Platelet Count 224 10^3/uL (140-450) Mean Platelet Volume 8.5 fL (6.9-10.8) Neutrophils (%) (Auto) 71.1 % (37.0-80.0) Lymphocytes (%) (Auto) 18.3 % (10.0-50.0) Monocytes (%) (Auto) 8.3 % (0.0-12.0) Eosinophils (%) (Auto) 1.5 % (0.0-7.0) Basophils (%) (Auto) 0.8 % (0.0-2.0) Neutrophils # (Auto) 10.5 10 ^3/uL (1.6-8.6) Lymphocytes # (Auto) 2.7 10 ^3/uL (0.4-5.4) Monocytes # (Auto) 1.2 10 ^3/uL (0-1.3) Eosinophils # (Auto) 0.2 10 ^3/uL (0-0.8) Basophils # (Auto) 0.1 10 ^3/uL (0-0.2) Nucleated Red Blood Cells 0.1 % Sodium Level 139 mmol/L (136-145) Potassium Level 3.8 mmol/L (3.5-5.1) Chloride Level 105 mmol/L (98-107) Carbon Dioxide Level 26 mmol/L (20-31) Anion Gap 8 (5-15) Blood Urea Nitrogen 10 mg/dL (9-23) Creatinine 0.61 mg/dL (0.550-1.02) Glomerular Filtration Rate Calc 94 mL/min (>90) BUN/Creatinine Ratio 16.4 (10.0-20.0) Serum Glucose 110 mg/dL (74-106) Calcium Level 9.5 mg/dL (8.7-10.4) Prothrombin Time 10.4 sec (9.3-11.8) Prothrombin Time INR 0.98 (0.9-1.15) Activated Partial Thromboplast Time 32.2 SEC (24.5-34.5) Troponin I High Sensitivity 1017 ng/L (</=34) Hemoglobin A1c 6.0 % A1C (<5.7) Triglycerides Level 67 mg/dL (< 150) Cholesterol Level 196 mg/dL (< 200) LDL Cholesterol 148 mg/dL (< 100) HDL Cholesterol 51 mg/dL (40-59) Thyroid Stimulating Hormone (TSH) 1.44 uIU/mL (0.55-4.78) Test 04/15/25 03:31 04/15/25 03:15 04/15/25 01:42 Lactic Acid Level 1.3 mmol/L (0.4-2.0) Urine Color Light-orange (Yellow) Urine Clarity Turbid (Clear) Urine pH 5.0 (5.0-9.0) Urine Specific [place] 1.042 (1.001-1.035) Urine Protein 2+ (Negative) Urine Ketones 3+ (Negative) Urine Blood 3+ /uL (Negative) Urine Nitrite Negative (Negative) Urine Bilirubin 1+ (Negative) Urine Urobilinogen 3 mg/dL (Negative) Urine Leukocyte Esterase Negative /uL (Negative) Urine RBC 127 /hpf (0 - 4) Urine Microscopic WBC 63 /HPF (0-5) Urine Squamous Epithelial Cells Few /hpf (<5) Urine Bacteria None seen /hpf (None Seen) Urine Mucus Many (None Seen) Urine Yeast (Budding) Many /hpf (None Seen) Urine Glucose Trace mg/dL (Normal) Magnesium Level 2.0 mg/dL (1.6-2.6) Total Bilirubin 0.4 mg/dL (0.2-1.0) Aspartate Amino Transferase (AST) 11 U/L (13-40) Alanine Aminotransferase (ALT) 14 U/L (7-40) Alkaline Phosphatase 94 U/L (46-116) B-Type Natriuretic Peptide 102.25 pg/mL (0-100) Total Protein 6.4 g/dL (5.7-8.2) Albumin 4.6 g/dL (3.2-4.8) Other Laboratory Tests 04/17/25 04:53 Brief Hx & Hospital Course: Patient is a 74-year-old female with prior medical history of hypertension, unspecified bronchial issue, hyperlipidemia, presented to the ED with chief complaint of chest pain. She states she was at rest when she had sudden onset of pressure like retrosternal pain, nonradiatin, intensity 2/10, with no relief, associated with nausea, diaphoresis, and 10+ emetic episodes about 1-2 hours after the consumption of deli meat. She denies chills, fever, and diarrhea. On evaluation in the ED, she was found in moderate distress, hypertensive, and saturating 89%. Initial labs showed WBC 15.1, Neutrophils 12.5, lactic acid 1.3, BUN 15, Creatinine 0.65, troponins 135, and BNP 102.25. 12 lead EKG showed NSR. Chest xray shows mild interstitial pulmonary edema. Head CT show no acute intracranial abnormality. Her troponins continued to trend up to 233 and 452. She was admitted for further work up and monitoring, and was started on oxygen, antiemetic treatment, and Aspirin and Lovenox therapeutic dose. Patient was persistently hypertensive for which her home medications were restarted. She was started on IV fluids. Echocardiogram was ordered which showed LVEF 65% with moderate LVH. She was seen by cardiology who recommended left heart catheterization, however patient initially refused choosing medical treatment instead. Per cardiology, she was started on Plavix and a lipid lowering agent was recommended. Follow up troponins were 1017 and she was started on a heparin drip. She was counseled on the benefits of undergoing heart catheterization and the risks, even more so considering the increase in troponins. Reasons for refusal were thoroughly explored, and procedure was thoroughly explained. Patient stated that she understood, and would go forward with the procedure. She was taken to left heart catheterization on 04/16/2025, which showed no signs of severe CAD. She was subsequently cleared by cardiology, with recommendations of aggressive risk factor modifications. She was evaluated today, she stated she felt well, nausea had resolved, she had slept well, tolerating oral diet, and is off oxygen. She denied chest pain, abdominal pain, nausea, vomiting, palpitations, and other symptoms. Follow up labs show improving leukocytosis, she was informed that the plan would most likely be to keep her one more day, however the patient stated she wished to leave. On further evaluation, she was considered stable to discharge home with oral doxycycline to continue finish antibiotic therapy along with aspirin, atorvastatin and metoprolol. She was given a follow up appointment in the discharge clinic for further follow up. Additionally, was given lifestyle recommendations for management of comorbid conditions. Medications and recommendations were thoroughly explained. She stated she understands and agrees. Physical Exam: General: Patient seems uncomfortable, alert, oriented in person place and time. Patient following commands HEENT: Normocephalic, atraumatic, EOM intact, pink conjunctiva, dry mucous membrane Respiratory/pulmonary: Bilateral chest expansion, no pain to palpation, clear lungs bilaterally, vesicular murmurs present in almost all lung nguyen, no associated crackles or wheezes Cardiovascular: Normal RRR, normal S1 and S2, no associated murmurs Abdomen: Obese, abdomen nondistended, normal bowel sounds, tympanic to percussion, no pain to palpation in any of the abdominal quadrants, no palpable masses. : Simon catheter draining clear urine is present Extremities: No deformities, no peripheral edema present at the lower extremities, bilateral feet are cool to the touch, decreased pulses in bilateral feet Skin: No rashes or pruritus Neurological: Intact cranial nerves with no focal neurologic deficits Case discussed with Dr. Vance. Goals of care discussed with the patient for over 25 minutes. Consults/Reason for consult Cardiology was consulted for heart cath Operations or Procedures CHEST RADIOGRAPH Indication: SOB Technique: Single frontal view of the chest was obtained COMPARISON: XY CHEST PORTABLE on DOS: 04/14/23, CHEST PORTABLE on DOS: 10/13/21 FINDINGS: Lines and Tubes: None Lungs: Mild interstitial pulmonary edema. Pleura: No effusion. No pneumothorax. Cardiomediastinal contours: Unremarkable Bones: Unremarkable IMPRESSION: 1. Mild interstitial pulmonary edema. PROCEDURE(s): HWOCT - HEAD WITHOUT CONTRAST REASON: vertigo ORDER NUMBER(s): [id number], ACCESSION NUMBER(s): [id number] EXAM: CT HEAD WITHOUT CONTRAST INDICATION: vertigo TECHNIQUE: CT of the head without intravenous contrast. Radiation Dose : 1. Head: CT Dose: CTDI volume is 61 mGy. Dose-length product is 1224 mGy*cm The dose indicators for CT are the volume Computed Tomography (CT) Dose Index (CTDIvol) and the Dose Length Product (DLP), and are measured in units of mGy and mGy-cm, respectively. These indicators are not patient dose, but values generated from the CT scanner acquisition factors. The report includes radiation exposure data for exposures received during this examination. COMPARISON: HEAD WITHOUT CONTRAST on DOS: 10/12/21 FINDINGS: There is no evidence of acute intracranial hemorrhage, extra-axial collection, mass effect, midline shift, herniation or hydrocephalus. The ventricles, sulci and cisterns are age appropriate. The trinh-white differentiation is intact. Patchy periventricular and subcortical white matter hypoattenuation is nonspecific but may be related to small vessel ischemic disease. The visualized paranasal sinuses and mastoid air cells are clear. The surrounding soft tissues and osseous structures are unremarkable. IMPRESSION: 1. No acute intracranial abnormality. 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 sedation 15-30 mins PREOPERATIVE DIAGNOSES: nstemi POSTOP DIAGNOSIS: DESCRIPTION OF PROCEDURE: The patient or appropriate family signed informed consent understanding the risks, benefits and alternatives of the procedure, they wished to proceed. The patient was brought to the cardiac computer lab assistant in n.p.o. state. The patient was prepped in a sterile fashion. Sedation was used per cardiac cath protocol. I administered 2 mL of 2% lidocaine to the right wrist. With an antegrade front wall puncture. I cannulated the right radial artery and placed a 6-[place] Glidesheath slender. Next, an intra-arterial spasmolytic was administered. Next, a 5F tiger was used but i was unable to get into ascending aorta likely 2/2 to tortuosity vs brachiocephalic occlusion and angio done. I attempted with glidewire as well. as pt requested non femoral access i obliged and accessed the Left radial artery and placed a6F sheath with 1 attempt. IA spasmolytic given again. Next I used a 4F JR4, JL4, 6F JL4.5 and 6F JL4 were used for coronary angiogram aAt the completion of procedure, all guides and wires were removed, and there were no immediate complications. 4000 U of IV heparin given FINDINGS: RCA: Moderate vessel off the right sinus of Valsalva, there is no severe flow limiting stenosis. LEFT MAIN: Moderate size left main, it bifurcates into LAD and circumflex. no stenosis CIRCUMFLEX: Moderate caliber vessel coming off the left main with no flow limiting stenosis. LAD: LAD is a moderate caliber vessel coming of the left main. no stenosis. mild plaquing in mid to distal LAD CONCLUSIONS: 1. NO severe cad Condition at Discharge: Stable Final Diagnosis/Problems List NSTEMI, likely Type 2 due to possble acute gastroenteritis Possible Acute gastroenteritis, possibly infectious Intractable nausea and vomiting, possibly to above Dehydration due to above Possible aspiration PNA, present on admission Acute chest pain, ruled out ACS Chronic diastolic heart failure Pulmonary Edema Hypertensive urgency Hypertension History of Hyperlipidemia Morbid obesity, BMI: 39.5 kg/m2 Discharge Disposition: Home Discharge Instruct/Medications Diet: Cardiac 2g Na,low cholest Activity: No Restrictions, As Tolerated Follow Up/Referral: Please follow up with PCP in 1-2 weeks Please follow up with Cardiology in 1-2 weeks Medications: Doxycycline 100 mg 2 times a day for 4 days Atorvastatin 1 tablet PO daily Scheduled Aspirin (Aspirin), 81 MG PO DAILY Atorvastatin Calcium (Atorvastatin Calcium), 1 TAB PO DAILY, (Reported) Atorvastatin Calcium (Atorvastatin Calcium), 1 TAB PO DAILY Doxycycline (Monohydrate) (Doxycycline), 100 MG PO BID Metoprolol Tartrate (Lopressor Tablet), 50 MG PO BID Discharge Statement: "Patient was advised to return to the ER or call 911 if any headaches, dizziness, shortness of breath, chest pain, abdominal pain, bleeding, fevers, or worsening of medical condition. Patient was counseled about treatment plan, medications, possible side effects, patientverbalized understanding. All questions were answered to the best of my ability. This discharge took greater then 30 minutes in planning, reviewing documentation, counseling the patient, and discussing with other team members." ASSESSMENT ASSESSMENT Assessment NSTEMI, Rule out Type 1 vs Type 2 Acute chest pain, rule out ACS Chronic diastolic heart failure Pulmonary Edema Possible Acute gastroenteritis, possibly infectious Intractable nausea and vomiting, possibly to above Dehydration due to above Possible aspiration? Hypertensive urgency Hypertension History of Hyperlipidemia Morbid obesity, BMI: 39.5 kg/m2 Date of Service: Apr 17, 2025 Billing Provider: COLEMAN VANCE MD Common Visit Codes: [id number] DISCH DAY >30min ALONDRA VALLADARES RESIDENT Apr 17, 2025 14:39 JUAN DIAMOND RESIDENT Apr 17, 2025 15:09 COLEMAN VANCE MD Apr 17, 2025 19:27
[2025-04-17] MEDS ORDERED: ATOR40TA52 PO (15:08)
[2025-04-17] MEDS ORDERED: ASPI1TAB19 PO (15:08)
[2025-04-17] MEDS ORDERED: MET50T PO (15:08)
== END 2025-04-17 14:37 | disposition home or self-care (01) | DRG 177 ==
LOC: EDUNIT# 23:41 → EDBD 23:41 → ER 23:41 → OVERFLOW 04-15 03:12 → TELE-WESTW 04-15 04:59
PROVIDERS: ADMIT Internal Medicine Geriatric Medicine; ATTEND Internal Medicine Geriatric Medicine
PROC: 4A023N7 Measurement of Cardiac Sampling and Pressure, Left Heart, Percutaneous Approach (ICD-10-PCS; principal; 2025-04-16)
PROC: B211YZZ Fluoroscopy of Multiple Coronary Arteries using Other Contrast (ICD-10-PCS; 2025-04-16)
DX: J69.0 Pneumonitis due to inhalation of food and vomit (principal); I21.A1 Myocardial infarction type 2; A09 Infectious gastroenteritis and colitis, unspecified; I50.32 Chronic diastolic (congestive) heart failure; I16.0 Hypertensive urgency; J44.9 Chronic obstructive pulmonary disease, unspecified; E66.01 Morbid (severe) obesity due to excess calories; I07.1 Rheumatic tricuspid insufficiency; I11.0 Hypertensive heart disease with heart failure; E78.5 Hyperlipidemia, unspecified; Z96.641 Presence of right artificial hip joint; Z88.0 Allergy status to penicillin; Z79.899 Other long term (current) drug therapy; Z80.8 Family history of malignant neoplasm of other organs or systems; Z82.49 Family history of ischemic heart disease and other diseases of the circulatory system; Z83.3 Family history of diabetes mellitus; Z68.39 Body mass index [BMI] 39.0-39.9, adult
CPT/HCPCS: 36415; 70450; 71045; 80048; 80053; 80061; 81001; 83036; 83605; 83735; 83880; 84443; 84484; 85025; 85610; 85730; 87040; 87086; 93005; 93306; 96365; 96375; 99152; G0378; J2250; J2405; J2470; J2543; Q9967